=== PATIENT | male | born 1945 | race Caucasian/White ===

== ENCOUNTER → 2016-09-12 | Outpatient (CLI) | payer BC ==
[~2016-09-12] MED LIST: ASPI325T39 PO; ASPI81TA28 PO; ASPI81TA57 PO; ATOR80TA PO; DRON400T PO; FRRS300 PO; LISI10TA PO; METO1TAB31 PO; NAPR1TAB9 PO; NTRGSL/4 SL; TYLOTC500 PO
--- NOTE | 2016-09-12 08:52 | DIAGNOSTIC IMAGING REPORT ---
CT SCAN OF THE CHEST WITH IV CONTRAST CLINICAL HISTORY: Colonic polyps. COMPARISON STUDY: Chest radiograph dated 11/19/2015. TECHNIQUE: Following the IV administration of 93 cc of Optiray 320, CT scan of the thorax was performed from the thoracic inlet to the upper abdomen. Images are reviewed in the axial, sagittal, and coronal planes. IV contrast was administered without complication. CT DOSE: 402.69 mGy.cm FINDINGS: Thyroid: Imaged portions of the thyroid gland are normal in size and attenuation. Thoracic aorta: There is mild atherosclerotic calcification of the thoracic aorta, which is normal in caliber and demonstrates standard 3-vessel arch anatomy. No dissection is seen. Heart: The heart is normal in size and configuration, and without pericardial effusion. The coronary arteries are densely calcified. The pulmonary trunk is normal in caliber. Lungs and pleural spaces: There is no airspace consolidation or pleural effusion. Dependent atelectasis is noted. There is an 11 mm pulmonary nodule at the right lung base seen on image #293. There is a 9 mm right middle lobe nodule seen on image #230 and a 3 mm right lower lobe nodule seen on image #247. The trachea and central airways are clear. Mediastinum: There is no mediastinal lymphadenopathy. Ama: Clear. Axillae: There is no axillary lymphadenopathy. Upper abdomen: Scattered hepatic cysts measure up to 1.8 cm. Additional subcentimeter hepatic hypodensities also likely represent cysts but are too small for definitive characterization. There are numerous gallstones. Skeletal structures: The skeletal structures are osteopenic. Mild degenerative change is present in the shoulders and thoracic spine. No lytic or blastic bony lesions are seen. IMPRESSION: 1. There is no airspace consolidation or pleural effusion. 2. There are 9 mm and 11 mm pulmonary nodules at the right lung base. These are indeterminant but merit follow-up based on size criteria. See below. 3. There is no mediastinal or hilar lymphadenopathy. 4. Cholelithiasis. 5. Additional findings as above. Please refer to below summary of Fleischner criteria recommendations for follow-up of incidental CT nodules (Fely Wang, Guidelines for management of small pulmonary nodules detected on CT scans: A statement from the Fleischner Society, Radiology 237: [phone].) Low Risk Patient: Minimal or no smoking or other known risk factors for malignancy <=4 mm: No follow-up needed. >4-6 mm: Initial follow-up CT at 12 months; if unchanged, no further follow-up. >6-8 mm: Initial follow-up CT at 6-12 months then at 18-24 months if no change. >8 mm: Follow-up CT at \R\3, 9, 24 months, or PET and/or biopsy. High Risk Patient: History of smoking or other known risk factors <=4 mm: Follow-up at 12 months; if unchanged, no further follow-up. >4-6 mm: Initial follow-up CT at 6-12 months then at 18-24 months if no change. >6-8 mm: Initial follow-up CT at 3-6 months then at 9-12 and 24 months if no change. >8 mm: Same as low risk patient. Note: Nodule size measured as average of length and width. Ground glass or partly solid nodules may require longer follow-up to exclude indolent adenocarcinoma. Electronically signed by: Andreas Reeves M.D. 09/12/2016 8:51 AM Dictated Date/Time: 09/12/2016 8:43 AM
== END | disposition home or self-care (01) ==
LOC: C.CTS 08:20
PROVIDERS: ATTEND Colon & Rectal Surgery
DX: K63.5 Polyp of colon (principal); R91.1 Solitary pulmonary nodule; K80.20 Calculus of gallbladder without cholecystitis without obstruction

== ENCOUNTER 2016-10-03 02:17 | Inpatient (IN) | payer BC, OTHER ==
[~2016-10-03] VITALS: Ht 175.3 cm; Wt 76.8 kg
[~2016-10-03 02:17] MED LIST changes: -ASPI81TA28 PO; -DRON400T PO; -FRRS300 PO; -TYLOTC500 PO
--- NOTE | 2016-10-03 02:51 | EMERGENCY ROOM VISIT NOTE ---
History Report prepared by Danyell: Robert Thornton Under the Supervision of: Dr. Pham Carroll D.O. First contact with patient: 02:29 Chief Complaint: ABDOMINAL PAIN Stated Complaint: BLOATING - PAIN History of Present Illness The patient is a 71 year old male who presents to the Emergency Room with complaints of persistent abdominal pain for the past five days. The pain is sharp in nature. The patient also complains of abdominal bloating and diarrhea. He has been passing gas. His last bowel movement was at 1700 today, which was a small amount because he has not been eating much. The patient only had jell-o and pudding to eat today. The patient had laparoscopic removal of part of his cecum on September 14 that was cancerous. His colon was not resected but a mass was removed from the cecum as he describes it. The patient saw his surgeon six days and and his PCP five days ago (Nasima). He started a regular diet after following up with his surgeon, and switched to a liquid diet after his abdominal pain started. The patient denies any leg cramping or swelling. Source of History: patient Onset: five days ago Position: abdomen Quality: sharp Timing: other (persistent) Associated Symptoms: + diarrhea Review of Systems See HPI for pertinent positives & negatives. A total of 10 systems reviewed and were otherwise negative. Past Medical & Surgical Medical Problems: (1) Adenocarcinoma, colon (2) CAD (coronary artery disease) (3) Lung nodules (4) Paroxysmal a-fib Surgical Problems: (1) H/O prostatectomy (2) History of arthroscopy of right shoulder (3) History of cataract surgery (4) Hx of appendectomy (5) s/p cecectomy (6) s/p lysis of adhesions Family History Patient reports no known family medical history. Social History Smoking Status: Never Smoker Alcohol Use: occasionally Drug Use: none Marital Status: Housing Status: lives with significant other Occupation Status: retired Current/Historical Medications Scheduled Aspirin (Aspirin Ec), 162 MG PO DAILY Atorvastatin Calcium (Lipitor), 80 MG PO Q2D Dronedarone Hcl (Multaq), 1 TAB PO BID Ferrous Sulfate (Ferrous Sulfate), 325 MG PO DAILY Lisinopril (Prinivil), 10 MG PO QAM Scheduled PRN Acetaminophen (Tylenol), 1,000 MG PO Q8 PRN for Pain Nitroglycerin (Nitrostat), 0.4 MG SL UD PRN for Chest Pain Allergies Coded Allergies: No Known Allergies (Unverified , 10/03/16) Physical Exam Vital Signs Date Time Temp Pulse Resp B/P Pulse Ox O2 Delivery O2 Flow Rate FiO2 10/03/16 08:25 54 16 128/68 97 Room Air 10/03/16 07:10 53 20 129/78 96 Room Air 10/03/16 05:41 53 18 135/71 98 Room Air 10/03/16 04:13 65 18 127/64 97 Room Air 10/03/16 02:21 36.5 79 18 118/77 96 Room Air Physical Exam HEENT: Head - normocephalic and atraumatic Pupils are equal, round, and reactive to light. Extraocular eye muscles are intact, and sclera are anicteric. Nose - moist nasal mucosa without discharge. Mouth - moist buccal mucosa. Oropharynx is nonerythematous and there is no tonsillar exudate or edema noted. Neck: Supple; no JVD, nuchal rigidity, cervical lymphadenopathy, or auscultated bruits. Heart: Regular rate and rhythm. There is a normal S1 and S2 with no murmurs, clicks, or gallops appreciated. Lungs: Clear to auscultation bilaterally with no wheezes, rales, or rhonchi. Abdomen: Distended abdomen with tinkling bowel sounds. Tympanic to percussion. There are no palpable pulsatile masses or hepatosplenomegaly. There is no guarding, rigidity, or rebound noted. Extremities: No evidence of cyanosis, clubbing, or edema. There are easily palpable peripheral pulses. Skin: warm and dry with good turgor and no rashes. Medical Decision & Procedures ER Provider Diagnostic Interpretation: X-ray results as stated below per interpretation by me. CT results as stated below per my review and the radiologist's interpretation: Obstruction series: Moderately dilated loop of small bowel concerning for small bowel obstruction or ileus. CT A&P: Comparison Ct dated 09/12/2016. Dilated small bowel loops with air fluid levels. Air fluid levels are present in the proximal colon. Distal ileum is relatively decompressed compared to the remainder of small bowel. Findings may represent ileus although partial or early small bowel obstruction is not excluded. Follow up imaging may be obtained to assess for passage of oral contrast. Small free fluid in the pelvis. Bilateral fat containing inguinal hernias. Hepatic and renal cysts. Atherosclerotic vascular disease. No AAA. Radiologist Kasia Aviles MD. Laboratory Results 10/03/16 03:10 Red Blood Count 4.46, Mean Corpuscular Volume 87.4, Mean Corpuscular Hemoglobin 30.9, Mean Corpuscular Hemoglobin Concent 35.4, Mean Platelet Volume 8.6, Neutrophils (%) (Auto) 69.9, Lymphocytes (%) (Auto) 16.4, Monocytes (%) (Auto) 11.0, Eosinophils (%) (Auto) 2.2, Basophils (%) (Auto) 0.2, Neutrophils # (Auto ) 4.54, Lymphocytes # (Auto) 1.06, Monocytes # (Auto) 0.71, Eosinophils # (Auto ) 0.14, Basophils # (Auto) 0.01 10/03/16 03:10 Test 10/03/16 03:10 10/03/16 05:20 White Blood Count 6.48 K/uL (4.8-10.8) Red Blood Count 4.46 M/uL (4.7-6.1) Hemoglobin 13.8 g/dL (14.0-18.0) Hematocrit 39.0 % (42-52) Mean Corpuscular Volume 87.4 fL (80-100) Mean Corpuscular Hemoglobin 30.9 pg (25-34) Mean Corpuscular Hemoglobin Concent 35.4 g/dl (32-36) Platelet Count 237 K/uL (130-400) Mean Platelet Volume 8.6 fL (7.4-10.4) Neutrophils (%) (Auto) 69.9 % Lymphocytes (%) (Auto) 16.4 % Monocytes (%) (Auto) 11.0 % Eosinophils (%) (Auto) 2.2 % Basophils (%) (Auto) 0.2 % Neutrophils # (Auto) 4.54 K/uL (1.4-6.5) Lymphocytes # (Auto) 1.06 K/uL (1.2-3.4) Monocytes # (Auto) 0.71 K/uL (0.11-0.59) Eosinophils # (Auto) 0.14 K/uL (0-0.5) Basophils # (Auto) 0.01 K/uL (0-0.2) RDW Standard Deviation 43.0 fL (36.4-46.3) RDW Coefficient of Variation 13.8 % (11.5-14.5) Immature Granulocyte % (Auto) 0.3 % Immature Granulocyte # (Auto) 0.02 K/uL (0.00-0.02) Anion Gap 9.0 mmol/L (3-11) Est Creatinine Clear Calc Drug Dose 72.4 ml/min Estimated GFR () 93.6 Estimated GFR (Non- 80.8 BUN/Creatinine Ratio 16.8 (10-20) Calcium Level 8.3 mg/dl (8.5-10.1) Total Bilirubin 1.5 mg/dl (0.2-1) Direct Bilirubin 0.4 mg/dl (0-0.2) Aspartate Amino Transf (AST/SGOT) 16 U/L (15-37) Alanine Aminotransferase (ALT/SGPT) 48 U/L (12-78) Alkaline Phosphatase 55 U/L (45-117) Total Protein 6.6 gm/dl (6.4-8.2) Albumin 3.5 gm/dl (3.4-5.0) Lipase 133 U/L (73-393) Hepatitis C Antibody Screen NEG (NEG) Urine Color DK YELLOW Urine Appearance CLOUDY (CLEAR) Urine pH 5.0 (4.5-7.5) Urine Specific [place] 1.022 (1.000-1.030) Urine Protein NEG (NEG) Urine Glucose (UA) NEG (NEG) Urine Ketones 1+ (NEG) Urine Occult Blood NEG (NEG) Urine Nitrite NEG (NEG) Urine Bilirubin NEG (NEG) Urine Urobilinogen POS (NEG) Urine Leukocyte Esterase NEG (NEG) Urine WBC (Auto) 1-5 /hpf (0-5) Urine RBC (Auto) 10-30 /hpf (0-4) Urine Hyaline Casts (Auto) 10-30 /lpf (0-5) Urine Epithelial Cells (Auto) 20-30 /lpf (0-5) Urine Bacteria (Auto) NEG (NEG) Laboratory results per my review. Medications Administered Medications (Trade) Dose Ordered Sig/Deann Route Start Time Stop Time Status Last Admin Dose Admin Hydromorphone HCl 1 mg 1 mg NOW STAT IV 10/03/16 07:03 10/03/16 07:05 DC 10/03/16 07:10 1 MG Sodium Chloride (Nss 1000ml) 1,000 ml @ 250 mls/hr Q4H STAT IV 10/03/16 07:04 10/03/16 11:01 DC 10/03/16 07:09 250 MLS/HR Procedure Medications administered include Colchicine PO, Dilaudid IV, NSS IV. ED Course 0245: Past medical records reviewed. The patient was evaluated in room A10. A complete history and physical exam was performed. An IV lock was initiated and labs were drawn as above. The patient will go for an obstruction series. 0350: Updated the patient. 0455: The patient is drinking his CT contrast. He appears to be doing okay at this time. 0653: The patient is still comfortable and has not had any new vomiting. I informed him that he will be rescanned in a few hours and will receive IV fluids. 0655: Nurse informed me that the patient would now like something for pain. 0700: The patient was signed out to Dr. Claire at shift change. 0703: Dilaudid 1 mg IV. 0704: NSS 1000 ml @ 250 mls/hr. Medical Decision The patient is a 71 year old male who presents to the ED with abdominal pain. Differential diagnosis includes small bowel obstruction, constipation, ileus, gastroenteritis. Laboratory interpretation: No leukocytosis, hemoglobin 13.8, total bilirubin 1.5 , direct bilirubin 0.4, lipase 133, normal glucose, normal renal function. This is a 71-year-old male patient presents emergency Department with abdominal pain and distention. The patient underwent a partial resection of his colon 3 weeks ago. He has been doing fine postoperatively until tonight when he began to develop some pain and distention. Initial obstruction series was somewhat concerning for a partial small bowel obstruction versus ileus. The patient went on to have a CT scan which was interpreted by stat rad stating that he had a partial small bowel obstruction or an ileus and they recommended additional imaging. At that point, the case was signed out to Dr. Claire change of shift awaiting the additional imaging once the contrast had time to pass. Impression Primary Impression: Abdominal distension Scribe Attestation The scribe's documentation has been prepared under my direction and personally reviewed by me in its entirety. I confirm that the note above accurately reflects all work, treatment, procedures, and medical decision making performed by me. Departure Information Dispostion Still a Patient Referrals Sharad Yeager M.D. (PCP) Patient Instructions My [facility]
[2016-10-03 03:21] LABS: BASO % 0.2 %; BASO ABS # 0.01 K/uL (0-0.2); COMPLETE YES; EOS % 2.2 %; IG% 0.3 %; LYMPH % 16.4 %; LYMPH ABS # 1.06 K/uL (1.2-3.4); MEAN CELL VOLUME 87.4 fL (80-100); MEAN CORPUSCULAR HEMOGLOBIN 30.9 pg (25-34); MEAN CORPUSCULAR HGB CONC 35.4 g/dl (32-36); MEAN PLATELET VOLUME 8.6 fL (7.4-10.4); NEUT % 69.9 %; PLATELET COUNT 237 K/uL (130-400); RED BLOOD COUNT 4.46 M/uL (4.7-6.1); WHITE BLOOD COUNT 6.48 K/uL (4.8-10.8)
[2016-10-03 03:39] LABS: BUN/CREATININE RATIO 16.8 (10-20); CALCIUM 8.3 mg/dl (8.5-10.1); CREATININE 0.95 mg/dl (0.60-1.40); POTASSIUM 3.7 mmol/L (3.5-5.1)
[2016-10-03] MEDS ORDERED: COLCHICINE 0.6 MG TAB PO ONE (03:45)
[2016-10-03] MEDS ORDERED: OPTIRAY 320 IV PRN (04:30)
[2016-10-03] MEDS ORDERED: ASPI81TA28 PO (05:09)
[2016-10-03] MEDS ORDERED: FRRS300 PO (05:09)
[2016-10-03] MEDS ORDERED: DRON400T PO (05:10)
[2016-10-03] MEDS ORDERED: TYLOTC500 PO (05:10)
[2016-10-03 05:36] LABS: URINE APPEARANCE CLOUDY (CLEAR); URINE BILIRUBIN NEG (NEG); URINE COLOR DK YELLOW; URINE EPITHELIAL CELL AUTO 20-30 /lpf (0-5); URINE NITRITE NEG (NEG); URINE SPECIFIC GRAVITY 1.022 (1.000-1.030); UROBILINOGEN POS (NEG)
[2016-10-03 05:41] LABS: MANUAL MICROSCOPIC REQUIRED? NO; REVIEW REQ? NO
[2016-10-03] MEDS ORDERED: HYDROmorphone INJ 1 MG/ML SYR IV STA (07:03)
[2016-10-03] MEDS ORDERED: SODIUM CHLORIDE 0.9% 1000ML 1,000 ML IV STA (07:04)
--- NOTE | 2016-10-03 07:53 | DIAGNOSTIC IMAGING REPORT ---
PA CHEST WITH ABDOMINAL SERIES CLINICAL HISTORY: Generalized abdominal pain. FINDINGS: A PA chest radiograph is compared to study dated 11/19/2015 and correlated with chest CT dated 09/12/2016. The cardiomediastinal silhouette is unremarkable. There is bibasilar atelectasis. Chronic interstitial thickening is noted. The lungs and pleural spaces are otherwise clear. No pneumothorax is seen. The skeletal structures are osteopenic. The bony thorax is grossly intact. Chronic right shoulder separation is suspected. Supine and erect abdominal radiographs are correlated with abdominal CT performed the same day 10/03/2016. There are distended loops of small bowel and colon. No evidence of intraperitoneal free air is seen. Scattered air-fluid levels are identified on the upright view. There are no abnormal abdominal calcifications. There is mild lumbosacral spondylosis. The bony pelvis appears intact. Surgical clips and phleboliths are present in the pelvis. IMPRESSION: 1. No active disease in the chest. 2. There is gaseous distention of the small bowel and colon. Differential considerations include partial small bowel obstruction versus ileus. Clinical correlation will be required. 3. No intraperitoneal free air is seen. Electronically signed by: Andreas Reeves M.D. 10/03/2016 7:52 AM Dictated Date/Time: 10/03/2016 7:48 AM
--- NOTE | 2016-10-03 08:25 | DIAGNOSTIC IMAGING REPORT ---
CT SCAN OF THE ABDOMEN AND PELVIS WITH IV CONTRAST CLINICAL HISTORY: Generalized abdominal pain. History of colon cancer. COMPARISON STUDY: Abdominal radiographs performed the same day 10/03/2016. Chest CT dated 09/12/2016. TECHNIQUE: Following the IV administration of 91 cc of Optiray 320, CT scan of the abdomen and pelvis is performed from the lung bases to the proximal femora. Images are reviewed in the axial, sagittal, and coronal planes. IV contrast was administered without complication. Automated dose control exposure was utilized. CT DOSE: 402.05 mGy.cm FINDINGS: Lung bases: The heart is normal in size and there is trace pericardial fluid. There are coronary artery calcifications. There is dependent atelectasis. No airspace consolidation is seen typical for pneumonia and there is no pleural effusion. There is a 11 mm nodule at the right lung base seen on image #92. An 8 mm right middle lobe nodule is seen on image #47. A small hiatal hernia is identified. Liver: The contrast-enhanced liver is normal in size, contour, and attenuation. There is no intrahepatic biliary ductal dilatation. The hepatic veins and portal veins are patent. Scattered hepatic cysts measure up to 2.0 cm. Additional hepatic hypodensities also likely represent cysts but are too small for definitive characterization. Gallbladder: Unremarkable. Spleen: Normal in size and attenuation. Pancreas: Moderately atrophic. Adrenal glands: Unremarkable. Kidneys: The contrast enhanced kidneys demonstrate mild cortical atrophy and are without hydronephrosis. The kidneys enhance symmetrically. Scattered renal cysts measure up to 3 cm. Additional subcentimeter cortical hypodensities also likely represent cysts but are too small for definitive characterization. Abdominal vasculature: The abdominal aorta is normal in course and caliber noting moderate atherosclerotic calcification. Bowel: There are postoperative changes from partial cecectomy with ileocolic anastomosis. The small bowel loops are distended and fluid-filled, measuring up to 4.1 cm in transverse diameter. The cecum is also mildly distended and fluid-filled. The distal colon is decompressed. A transition point is suggested in the right lower quadrant on image #376 and the distal/terminal ileum is decompressed. The appearance is typical for a bowel obstruction. No focally thick walled bowel loops are identified. There is no pneumatosis intestinalis or portal venous gas. The appendix is surgically absent. Peritoneum: There is a small volume of abdominopelvic ascites. No intraperitoneal free air is seen. There is a small fat-containing umbilical hernia. Lymphadenopathy: None. Pelvic viscera: The prostate gland is not identified and presumed surgically absent. The bladder is normal as imaged. There are bilateral fat-containing inguinal hernias, left larger than right. Skeletal structures: The skeletal structures are heterogeneously osteopenic. There is moderate lumbosacral spondylosis. No lytic or blastic lesions are seen. IMPRESSION: 1. There are postoperative changes from cecectomy with ileocolic anastomosis. 2. Findings are consistent with a small bowel obstruction, with a transition point identified in the right lower quadrant. This may be partial as there is gas and fluid seen within the cecum. 3. No intraperitoneal free air is seen. No focally thick walled bowel loops are identified. There is no pneumatosis intestinalis or portal venous gas. 4. There is a small volume of abdominopelvic ascites. 5. Pulmonary nodules at the right lung base measuring up to 11 mm are again noted. These were better characterized on the 09/12/[address] 6. Additional findings as above. Electronically signed by: Andreas Reeves M.D. 10/03/2016 8:24 AM Dictated Date/Time: 10/03/2016 8:12 AM
[2016-10-03] MEDS ORDERED: ACETAMINOPHEN 325 MG TAB PO PRN (09:45)
[2016-10-03] MEDS ORDERED: ONDANSETRON INJ 2 MG/ML 2 ML VIAL IV PRN (09:45)
[2016-10-03] MEDS ORDERED: DRONEDARONE 400 MG TAB PO ONE (09:59)
[2016-10-03] MEDS ORDERED: MoRPHine SULFATE 4 MG/ML 1 ML CARP\\VIAL IV PRN (10:00)
--- NOTE | 2016-10-03 10:35 | History and Physical ---
History & Physical Date & Time of Service: Oct 03, 2016 at 10:14 Chief Complaint: Abdominal Bloating, Pain Primary Care Physician: Sharad Yeager M.D. History of Present Illness 71 year old male who presents to the ER with abdominal bloating and pain. On 09/14 patient underwent cecectomy and lysis of adhesions for adenocarcinoma. Patient reports he saw his surgeon last week for follow up and was told he could advance his diet. Patient reports he then ate a very large meal. He started to develop abdominal bloating. He pain in his lower abdomen that he describes as a pressure from the bloating. He initially had 5 episodes of diarrhea however has been having regular bowel movements, most recently this morning. Patient called his surgeon about his symptoms and he was told to go on a liquid diet however the bloating continued. He denies nausea and vomiting. No chest pain, palpitations, or shortness of breath. He denies lightheadedness, dizziness, diaphoresis, or syncope. No fever or chills. In the ER, patient had a CT that is showing SBO, possibly partial. Patient was given IVF and IV Dilaudid. He reports he has been passing flatus, belching, and even had a small bowel movement since being here. He reports the abdominal distention has significantly improved and he is pain free. Past Medical/Surgical History Medical Problems: (1) Adenocarcinoma, colon Status: Chronic (2) CAD (coronary artery disease) Permanent Comment: 2012 - RCA STEMI, s/p BMS x 3 and aspiration thrombectomy to RCA Status: Chronic (3) Lung nodules Status: Chronic (4) Paroxysmal a-fib Status: Chronic Surgical Problems: (1) H/O prostatectomy Status: Chronic (2) History of arthroscopy of right shoulder Status: Chronic (3) History of cataract surgery Status: Chronic (4) Hx of appendectomy Status: Chronic (5) s/p cecectomy Status: Chronic (6) s/p lysis of adhesions Status: Chronic Social History Smoking Status: Former Smoker Alcohol Use: none Marital Status: Immunizations History of Influenza Vaccine: Yes Influenza Vaccine Date: Aug 04, 2016 History of Tetanus Vaccine?: Yes Tetanus Immunization Date: December 15, 2009 History of Pneumococcal: Yes Pneumococcal Date: Aug 20, 2015 Multi-Drug Resistant Organisms History of MDRO: No Allergies Coded Allergies: No Known Allergies (Unverified , 10/03/16) Home Medications Scheduled Aspirin (Aspirin Ec), 162 MG PO DAILY Atorvastatin Calcium (Lipitor), 80 MG PO Q2D Dronedarone Hcl (Multaq), 1 TAB PO BID Ferrous Sulfate (Ferrous Sulfate), 325 MG PO DAILY Lisinopril (Prinivil), 10 MG PO QAM Scheduled PRN Acetaminophen (Tylenol), 1,000 MG PO Q8 PRN for Pain Nitroglycerin (Nitrostat), 0.4 MG SL UD PRN for Chest Pain Review of Systems 10 point review of systems was completed with the pertinent positives and negatives noted per the HPI Physical Exam Vital Signs Date Time Temp Pulse Resp B/P Pulse Ox O2 Delivery O2 Flow Rate FiO2 10/03/16 08:25 54 16 128/68 97 Room Air 10/03/16 07:10 53 20 129/78 96 Room Air 10/03/16 05:41 53 18 135/71 98 Room Air 10/03/16 04:13 65 18 127/64 97 Room Air 10/03/16 02:21 36.5 79 18 118/77 96 Room Air General Appearance: no apparent distress Head: normocephalic Eyes: normal inspection ENT: hearing grossly normal Neck: supple, no JVD Respiratory/Chest: lungs clear, normal breath sounds, no respiratory distress Cardiovascular: no edema, normal peripheral pulses, + bradycardia (regular rhythm ) Abdomen/GI: soft, + tenderness (mild with deep palpation, lower abdomen ), + abnormal bowel sounds (hypoactive) Extremities/Musculoskelatal: normal inspection, no calf tenderness Neurologic/Psych: no motor/sensory deficits, alert, normal mood/affect, oriented x 3 Skin: normal color, warm/dry Diagnostics Laboratory Results Results Past 24 Hours Test 10/03/16 03:10 10/03/16 05:20 10/03/16 09:47 Range/Units White Blood Count 6.48 4.8-10.8 K/uL Red Blood Count 4.46 4.7-6.1 M/uL Hemoglobin 13.8 14.0-18.0 g/dL Hematocrit 39.0 42-52 % Mean Corpuscular Volume 87.4 80-100 fL Mean Corpuscular Hemoglobin 30.9 25-34 pg Mean Corpuscular Hemoglobin Concent 35.4 32-36 g/dl Platelet Count 237 130-400 K/uL Mean Platelet Volume 8.6 7.4-10.4 fL Neutrophils (%) (Auto) 69.9 % Lymphocytes (%) (Auto) 16.4 % Monocytes (%) (Auto) 11.0 % Eosinophils (%) (Auto) 2.2 % Basophils (%) (Auto) 0.2 % Neutrophils # (Auto) 4.54 1.4-6.5 K/uL Lymphocytes # (Auto) 1.06 1.2-3.4 K/uL Monocytes # (Auto) 0.71 0.11-0.59 K/uL Eosinophils # (Auto) 0.14 0-0.5 K/uL Basophils # (Auto) 0.01 0-0.2 K/uL RDW Standard Deviation 43.0 36.4-46.3 fL RDW Coefficient of Variation 13.8 11.5-14.5 % Immature Granulocyte % (Auto) 0.3 % Immature Granulocyte # (Auto) 0.02 0.00-0.02 K/uL Sodium Level 136 136-145 mmol/L Potassium Level 3.7 3.5-5.1 mmol/L Chloride Level 101 98-107 mmol/L Carbon Dioxide Level 26 21-32 mmol/L Anion Gap 9.0 3-11 mmol/L Blood Urea Nitrogen 16 7-18 mg/dl Creatinine 0.95 0.60-1.40 mg/dl Est Creatinine Clear Calc Drug Dose 72.4 ml/min Estimated GFR () 93.6 Estimated GFR (Non- 80.8 BUN/Creatinine Ratio 16.8 10-20 Random Glucose 81 70-99 mg/dl Calcium Level 8.3 8.5-10.1 mg/dl Total Bilirubin 1.5 0.2-1 mg/dl Direct Bilirubin 0.4 0-0.2 mg/dl Aspartate Amino Transf (AST/SGOT) 16 15-37 U/L Alanine Aminotransferase (ALT/SGPT) 48 12-78 U/L Alkaline Phosphatase 55 45-117 U/L Total Protein 6.6 6.4-8.2 gm/dl Albumin 3.5 3.4-5.0 gm/dl Lipase 133 73-393 U/L Urine Color DK YELLOW Urine Appearance CLOUDY CLEAR Urine pH 5.0 4.5-7.5 Urine Specific [place] 1.022 1.000-1.030 Urine Protein NEG NEG Urine Glucose (UA) NEG NEG Urine Ketones 1+ NEG Urine Occult Blood NEG NEG Urine Nitrite NEG NEG Urine Bilirubin NEG NEG Urine Urobilinogen POS NEG Urine Leukocyte Esterase NEG NEG Urine WBC (Auto) 1-5 0-5 /hpf Urine RBC (Auto) 10-30 0-4 /hpf Urine Hyaline Casts (Auto) 10-30 0-5 /lpf Urine Epithelial Cells (Auto) 20-30 0-5 /lpf Urine Bacteria (Auto) NEG NEG Diagnostic Radiology CHEST/ABD XR IMPRESSION: 1. No active disease in the chest. 2. There is gaseous distention of the small bowel and colon. Differential considerations include partial small bowel obstruction versus ileus. Clinical correlation will be required. 3. No intraperitoneal free air is seen. CT ABD/PELVIS IMPRESSION: 1. There are postoperative changes from cecectomy with ileocolic anastomosis. 2. Findings are consistent with a small bowel obstruction, with a transition point identified in the right lower quadrant. This may be partial as there is gas and fluid seen within the cecum. 3. No intraperitoneal free air is seen. No focally thick walled bowel loops are identified. There is no pneumatosis intestinalis or portal venous gas. 4. There is a small volume of abdominopelvic ascites. 5. Pulmonary nodules at the right lung base measuring up to 11 mm are again noted. These were better characterized on the 09/12/[address] 6. Additional findings as above. Impression Assessment and Plan SBO - admit to med/surg - patient s/p cecectomy and lysis of adhesions on 09/14/[address] Welch [place] [facility] - presenting with increasing abdominal distention and lower abdominal pain after advancing diet per surgeon's advice - patient currently feeling much improved and has been passing flatus and had a small formed bowel movement - no role of NG at this time, however low threshold for placement if symptoms worsen - general surgery consult - NPO until seen by surgery - IVF, pain and nausea control - f/u abd XR in AM - patient reports his surgeon from [facility] has office hours in [place] tomorrow - potential d/c tomorrow if cleared by general surgery here for follow up with Dr. Yuri Root. FIB - HR auscultates regular on exam, check EKG - rhythm controlled on Multaq, will continue - patient declines anticoagulation CAD - appears stable, no reports of chest pain - continue ASA and statin; not on beta dina due to bradycardia and Multaq therapy HTN - BP controlled, continue Lisinopril DVT PROPHYLAXIS - SCDs CODE STATUS - Patient is a full code as per my discussion with him. DISPO - In my clinical judgment this beneficiary meets acute admission criteria, established by [facility], that includes being hospitalized through two midnights. - Except d/c home once medically stable. I have seen, examined and discussed this patient with Jennifer Soria and I agree with the above note. Patient presented with abdominal pain, bloating. CT a/p with partial SBO. Patient had a small BM, has had belching and flatus and feels significantly improved. Vitals stable. PE: General- awake; alert; NAD Eyes- EOMI; no scleral icterus Neck- no stridor; trachea midline Lungs- CTA bilaterally; no wheezes/crackles Heart- RRR; no m/r/g Abdomen- soft; NTND; nBS Back- no gross abnormalities Extremities- no c/c/e; no deformity Neuro- no gross focal deficits Skin- no appreciable rash or bruise Labs, imaging and EKG reviewed. Patient presented with partial SBO. General surgery consulted. Case reviewed with patient's colorectal surgeon from [place]. Patient is pain free, passing gas. Tolerating full liquid diet. Anticipate discharge home in am with same day follow up with [place] colorectal surgeon (who will be in [facility]). Continue home medications as outlined above. VTE Prophylaxis VTE Risk Assessment Done? Y/N: Yes Risk Level: Moderate
--- NOTE | 2016-10-03 11:05 | Surgery Consultation ---
Consultation Date of Consultation: Oct 03, 2016. Attending Physician: Reason for Consultation: Partial Small Bowel Obstruction History of Present Illness Jayce is a 71 year-old male who presented to [facility] emergency department with complaint of abdominal pain and bloating for 5 days. Jayce had cecectomy on September [address] [place] [address] Maravilla for colon cancer. States he was doing well up until 5 days ago started getting abdominal pain and bloating. Has passed gas and a small bowel movement this morning and is feeling a lot better. Currently denies of any nausea or vomiting. Has appointment with Dr. Maravilla Monday. CT scan of abdomen and pelvis showing partial small bowel obstruction , does not show complete obstruction given air in the colon. Past Medical/Surgical History Medical Problems: (1) Atrial fibrillation with rapid ventricular response Status: Acute (2) Influenza A Status: Acute (3) Paroxysmal a-fib Status: Acute Family History Diabetes mellitus MOTHER Social History Smoking Status: Former Smoker Alcohol Use: none Marital Status: Housing Status: lives with significant other Allergies Coded Allergies: No Known Allergies (Unverified , 10/03/16) Home Medications Scheduled Aspirin (Aspirin Ec), 162 MG PO DAILY Atorvastatin Calcium (Lipitor), 80 MG PO Q2D Dronedarone Hcl (Multaq), 1 TAB PO BID Ferrous Sulfate (Ferrous Sulfate), 325 MG PO DAILY Lisinopril (Prinivil), 10 MG PO QAM Scheduled PRN Acetaminophen (Tylenol), 1,000 MG PO Q8 PRN for Pain Nitroglycerin (Nitrostat), 0.4 MG SL UD PRN for Chest Pain Current Inpatient Medications Current Inpatient Medications Medications (Trade) Dose Ordered Sig/Deann Route Start Time Stop Time Status Last Admin Dose Admin Ioversol 100 ml 100 ml UD PRN IV 10/03/16 04:30 10/07/16 04:29 Sodium Chloride (Nss 1000ml) 1,000 ml @ 250 mls/hr Q4H STAT IV 10/03/16 07:04 10/03/16 11:03 10/03/16 07:09 250 MLS/HR Acetaminophen (Tylenol Tab) 650 mg Q4H PRN PO 10/03/16 09:45 11/02/16 09:44 Ondansetron HCl 4 mg 4 mg Q6H PRN IV 10/03/16 09:45 11/02/16 09:44 Sodium Chloride (Nss 1000ml) 1,000 ml @ 150 mls/hr Q6H40M IV 10/03/16 10:00 11/02/16 09:59 UNV Morphine Sulfate (MoRPHine SULFATE INJ) 3 mg Q3H PRN IV 10/03/16 10:00 10/17/16 09:59 Aspirin (Ecotrin Tab) 162 mg DAILY PO 10/04/16 09:00 11/03/16 08:59 UNV Atorvastatin Calcium (Lipitor Tab) 80 mg Q2D PO 10/03/16 10:00 11/02/16 09:59 UNV Dronedarone (Multaq Tab) 400 mg BID PO 10/03/16 21:00 11/02/16 20:59 UNV Ferrous Sulfate (Feosol Tab) 325 mg DAILY PO 10/04/16 09:00 11/03/16 08:59 UNV Lisinopril (Zestril Tab) 10 mg QAM PO 10/04/16 09:00 11/03/16 08:59 UNV Dronedarone (Multaq Tab) 400 mg 0959 ONCE PO 10/03/16 09:59 10/03/16 10:00 UNV Review of Systems Constitutional: No chills, No fever, No weight loss Respiratory: No cough Cardiovascular: No chest pain Abdomen: + pain, No nausea, No vomiting Physical Exam Date Time Temp Pulse Resp B/P Pulse Ox O2 Delivery O2 Flow Rate FiO2 10/03/16 08:25 54 16 128/68 97 Room Air 10/03/16 07:10 53 20 129/78 96 Room Air 10/03/16 05:41 53 18 135/71 98 Room Air 10/03/16 04:13 65 18 127/64 97 Room Air 10/03/16 02:21 36.5 79 18 118/77 96 Room Air General Appearance: WD/WN, no apparent distress Head: normocephalic, atraumatic Respiratory/Chest: lungs clear, normal breath sounds, no respiratory distress, no accessory muscle use Cardiovascular: regular rate, rhythm, no murmur, normal peripheral pulses Abdomen/GI: non tender, soft, + distended Extremities/Musculoskelatal: normal inspection Neurologic/Psych: normal mood/affect Skin: normal color, warm/dry, no rash Laboratory Results Last 24 Hours Test 10/03/16 03:10 10/03/16 05:20 10/03/16 10:26 White Blood Count 6.48 K/uL Red Blood Count 4.46 M/uL Hemoglobin 13.8 g/dL Hematocrit 39.0 % Mean Corpuscular Volume 87.4 fL Mean Corpuscular Hemoglobin 30.9 pg Mean Corpuscular Hemoglobin Concent 35.4 g/dl Platelet Count 237 K/uL Mean Platelet Volume 8.6 fL Neutrophils (%) (Auto) 69.9 % Lymphocytes (%) (Auto) 16.4 % Monocytes (%) (Auto) 11.0 % Eosinophils (%) (Auto) 2.2 % Basophils (%) (Auto) 0.2 % Neutrophils # (Auto) 4.54 K/uL Lymphocytes # (Auto) 1.06 K/uL Monocytes # (Auto) 0.71 K/uL Eosinophils # (Auto) 0.14 K/uL Basophils # (Auto) 0.01 K/uL RDW Standard Deviation 43.0 fL RDW Coefficient of Variation 13.8 % Immature Granulocyte % (Auto) 0.3 % Immature Granulocyte # (Auto) 0.02 K/uL Sodium Level 136 mmol/L Potassium Level 3.7 mmol/L Chloride Level 101 mmol/L Carbon Dioxide Level 26 mmol/L Anion Gap 9.0 mmol/L Blood Urea Nitrogen 16 mg/dl Creatinine 0.95 mg/dl Est Creatinine Clear Calc Drug Dose 72.4 ml/min Estimated GFR () 93.6 Estimated GFR (Non- 80.8 BUN/Creatinine Ratio 16.8 Random Glucose 81 mg/dl Calcium Level 8.3 mg/dl Total Bilirubin 1.5 mg/dl Direct Bilirubin 0.4 mg/dl Aspartate Amino Transf (AST/SGOT) 16 U/L Alanine Aminotransferase (ALT/SGPT) 48 U/L Alkaline Phosphatase 55 U/L Total Protein 6.6 gm/dl Albumin 3.5 gm/dl Lipase 133 U/L Urine Color DK YELLOW Urine Appearance CLOUDY Urine pH 5.0 Urine Specific [place] 1.022 Urine Protein NEG Urine Glucose (UA) NEG Urine Ketones 1+ Urine Occult Blood NEG Urine Nitrite NEG Urine Bilirubin NEG Urine Urobilinogen POS Urine Leukocyte Esterase NEG Urine WBC (Auto) 1-5 /hpf Urine RBC (Auto) 10-30 /hpf Urine Hyaline Casts (Auto) 10-30 /lpf Urine Epithelial Cells (Auto) 20-30 /lpf Urine Bacteria (Auto) NEG CT SCAN ABDOMEN AND PELVIS IMPRESSION: 1. There are postoperative changes from cecectomy with ileocolic anastomosis. 2. Findings are consistent with a small bowel obstruction, with a transition point identified in the right lower quadrant. This may be partial as there is gas and fluid seen within the cecum. 3. No intraperitoneal free air is seen. No focally thick walled bowel loops are identified. There is no pneumatosis intestinalis or portal venous gas. 4. There is a small volume of abdominopelvic ascites. 5. Pulmonary nodules at the right lung base measuring up to 11 mm are again noted. These were better characterized on the 09/12/[address] 6. Additional findings as above. Assessment & Plan Partial Small Bowel Obstruction - vital signs stable - CT scan showing partial obstruction not complete - patient passed flatus this morning and in ER - Concern for possible internal hernia given recent surgery ER physician to talk with Surgeon from [place], if surgeon agrees for transfer then patient will be transferred for further management. If surgeon does not feel patient needs transferred patient will be admitted here and our service will continue to follow patient. Dr. Adame has seen and examined patient agrees with above stated findings and treatment plan.
[2016-10-03] MEDS: SODIUM CHLORIDE 0.9% 1000ML 1,000 ML IV SCH ×2 (12:22→18:06)
[2016-10-03 12:33] VITALS: BP 132/76; PULSE 52; TEMP 36.3; O2SAT 97
[2016-10-03 12:50] VITALS: BP 132/76; PULSE 52; TEMP 36.3; O2SAT 97; Ht 175.3 cm; Wt 76.8 kg
[2016-10-03] MEDS: ATORVASTATIN 40 MG TAB PO SCH ×2 (13:25→13:30)
[2016-10-03] MEDS ORDERED: NURSING VERBAL MED ORDER ONE (13:30)
--- NOTE | 2016-10-03 15:07 | Progress Note ---
Progress Note Date of Service Oct 03, 2016. Progress Note Spoke with Dr. Welch (surgeon at [facility] who preferred patient's cecectomy). He was able to review his CT abd/pelvis done in the ER earlier. He recommends we give the patient a full liquid diet. If patient tolerates, he can be discharged tomorrow will follow up in the [place] office tomorrow. If patient does not tolerate the diet, NG tube will be placed and patient will be transferred to [facility]. Patient updated who agrees with the plan. Dr. Adame also updated.
[2016-10-03 15:15] VITALS: BP 130/71; PULSE 58; TEMP 36.4; O2SAT 96
--- NOTE | 2016-10-03 15:33 | EMERGENCY ROOM VISIT NOTE ---
ED Visit Note First contact with patient: 06:57 I received this patient in signout at the change of shift from Dr. Carroll by pending repeat CT scan as recommended by stat read radiology. The original CT scan was over read by Dr. Reeves are [facility] radiologist. It is read as below. IMPRESSION: 1. There are postoperative changes from cecectomy with ileocolic anastomosis. 2. Findings are consistent with a small bowel obstruction, with a transition point identified in the right lower quadrant. This may be partial as there is gas and fluid seen within the cecum. 3. No intraperitoneal free air is seen. No focally thick walled bowel loops are identified. There is no pneumatosis intestinalis or portal venous gas. 4. There is a small volume of abdominopelvic ascites. 5. Pulmonary nodules at the right lung base measuring up to 11 mm are again noted. These were better characterized on the 09/12/[address] 6. Additional findings as above. Electronically signed by: Andreas Reeves M.D. 10/03/2016 8:24 AM I discussed the findings with Dr. Reeves who stated he did not feel that repeat imaging was necessary. The patient was discussed with the hospitalist service, Jennifer Soria PA-C. Dr. Adame of general surgery was consulted. He was concerned about a possible internal hernia however I did speak with Dr. Reeves again who stated there is no evidence of this on CT scan and his opinion. Dr. Adame has requested that I speak with Dr. Cruz, the colorectal surgeon at [facility]. He stated is highly unlikely that there is an internal hernia given the surgery that he performed. He will evaluate the CAT scan images when available on the PACS system at [facility]. The patient will be evaluated and admitted by the hospitalist service with general surgery consultation. The patient will likely follow-up with Dr. Quigley tomorrow in the outpatient clinic in [place]. At this time the patient has no interest in being transferred to [facility], he prefers to stay local. He is passing gas and his abdominal pain has improved significantly. I suspect he is suffering from a partial small bowel obstruction. He has tolerated oral contrast for CT well and has had no vomiting. Pt is aware of the plan and agrees. Diagnosis: Partial SBO
[2016-10-03] MEDS: DRONEDARONE 400 MG TAB PO SCH (21:28)
[2016-10-03 23:32] VITALS: BP 137/74; PULSE 57; TEMP 36.7; O2SAT 94
[2016-10-04] MEDS: SODIUM CHLORIDE 0.9% 1000ML 1,000 ML IV SCH (01:58)
[2016-10-04 07:14] LABS: HEMATOCRIT 35.2 % (42-52); MEAN CELL VOLUME 88.7 fL (80-100); MEAN CORPUSCULAR HGB CONC 34.9 g/dl (32-36); MEAN PLATELET VOLUME 8.4 fL (7.4-10.4); PLATELET COUNT 194 K/uL (130-400); RED BLOOD COUNT 3.97 M/uL (4.7-6.1); WHITE BLOOD COUNT 4.86 K/uL (4.8-10.8)
[2016-10-04 07:40] LABS: BUN/CREATININE RATIO 12.3 (10-20); CALCIUM 7.9 mg/dl (8.5-10.1); CREATININE 0.93 mg/dl (0.60-1.40); POTASSIUM 3.7 mmol/L (3.5-5.1)
--- NOTE | 2016-10-04 08:04 | Discharge Instructions ---
Discharge Instructions Admission Reason for Admission: SBO Discharge Discharge Diagnosis / Problem: Partial small bowel obstruction Discharge Goals Goal(s): Decrease discomfort Activity Recommendations Activity Limitations: resume your previous activity . Instructions / Follow-Up Instructions / Follow-Up Please keep your scheduled appointment with Colorectal surgery Dr. Welch today at 1:30pm. Please discuss with Dr. Welch any dietary restrictions and when to advance your diet. Please follow up with Family Medicine Dr. Mcfarlane October 07 at 1:20pm. (Dr. Yeager is out of the office) Current Hospital Diet Patient's current hospital diet: Full Liquid Diet Discharge Diet Recommended Diet: Full Liquid Diet Pending Studies Studies pending at discharge: no Medical Emergencies . Who to Call and When: Medical Emergencies: If at any time you feel your situation is an emergency, please call 911 immediately. . Non-Emergent Contact Non-Emergency issues call your: Primary Care Provider . . "Provider Documentation" section prepared by Carin Lyles. VTE Core Measure Inpt VTE Proph given/why not?: SCD's
--- NOTE | 2016-10-04 08:11 | Discharge Summary ---
Discharge Summary Date of Service Oct 04, 2016. Discharge Summary Admission Date: Oct 03, 2016 at 09:47 Discharge Date: Oct 04, 2016 Discharge Disposition: Home Principal Diagnosis: Partial SBO Procedures: CT a/p 1. There are postoperative changes from cecectomy with ileocolic anastomosis. 2. Findings are consistent with a small bowel obstruction, with a transition point identified in the right lower quadrant. This may be partial as there is gas and fluid seen within the cecum. 3. No intraperitoneal free air is seen. No focally thick walled bowel loops are identified. There is no pneumatosis intestinalis or portal venous gas. 4. There is a small volume of abdominopelvic ascites. 5. Pulmonary nodules at the right lung base measuring up to 11 mm are again noted. These were better characterized on the 09/12/[address] Consultations: General surgery Medication Reconciliation Continued Medications: Acetaminophen (Tylenol) 500 Mg Tab 1000 MG PO Q8 PRN for Pain, TAB Aspirin (Aspirin Ec) 81 Mg Tab 162 MG PO DAILY Atorvastatin Calcium (Lipitor) 80 Mg Tab 80 MG PO Q2D, TAB Dronedarone Hcl (Multaq) 400 Mg Tab 1 TAB PO BID for 90 Days, #180 TAB 3 Refills Ferrous Sulfate (Ferrous Sulfate) 325 Mg Tab 325 MG PO DAILY Lisinopril (Prinivil) 10 Mg Tab 10 MG PO QAM, TAB Nitroglycerin (Nitrostat) 0.4 Mg Tab 0.4 MG SL UD PRN for Chest Pain, BTL PLACE ONE TABLET UNDER THE TONGUE EVERY 5 MINUTES FOR UP TO 3 DOSES, IF NEEDED FOR CHEST PAIN. Admission Information HPI (per Admitting provider): 71 year old male who presents to the ER with abdominal bloating and pain. On 09/14 patient underwent cecectomy and lysis of adhesions for adenocarcinoma. Patient reports he saw his surgeon last week for follow up and was told he could advance his diet. Patient reports he then ate a very large meal. He started to develop abdominal bloating. He pain in his lower abdomen that he describes as a pressure from the bloating. He initially had 5 episodes of diarrhea however has been having regular bowel movements, most recently this morning. Patient called his surgeon about his symptoms and he was told to go on a liquid diet however the bloating continued. He denies nausea and vomiting. No chest pain, palpitations, or shortness of breath. He denies lightheadedness, dizziness, diaphoresis, or syncope. No fever or chills. In the ER, patient had a CT that is showing SBO, possibly partial. Patient was given IVF and IV Dilaudid. He reports he has been passing flatus, belching, and even had a small bowel movement since being here. He reports the abdominal distention has significantly improved and he is pain free. Physical Exam (per Admitting): General Appearance: no apparent distress Head: normocephalic Eyes: normal inspection ENT: hearing grossly normal Neck: supple, no JVD Respiratory/Chest: lungs clear, normal breath sounds, no respiratory distress Cardiovascular: no edema, normal peripheral pulses, + bradycardia (regular rhythm ) Abdomen/GI: soft, + tenderness (mild with deep palpation, lower abdomen ), + abnormal bowel sounds (hypoactive) Extremities/Musculoskelatal: normal inspection, no calf tenderness Neurologic/Psych: no motor/sensory deficits, alert, normal mood/affect, oriented x 3 Skin: normal color, warm/dry Hospital Course Patient presented with abdominal pain and bloating. CT a/p on admission showed partial SBO. General surgery was consulted. Case was also d/w patient's [place] colorectal surgeon Dr. Welch. Patient noted significant improvement in pain and bloating after having a small BM, belching and passing flatus the day of presentation. Patient was started on a full liquid diet, which he tolerated. Patient noted that this was the best that he has felt in the past 5-6 days. Patient was continued on his home medications; no changes were made. Patient deemed stable for discharge with Family Medicine and Colorectal surgery follow up. PE on discharge: General- awake; alert; NAD Eyes- EOMI; no scleral icterus Neck- no stridor; trachea midline Lungs- CTA bilaterally; no wheezes/crackles Heart- RRR; no m/r/g Abdomen- soft; NTND; nBS; surgical site healing well Back- no gross abnormalities Extremities- no c/c/e; no deformity Neuro- no focal deficits Skin- no appreciable rash or bruise . Total time spent on discharge = This includes examination of the patient, discharge planning, medication reconciliation, and communication with other providers. Discharge Instructions Discharge Instructions Admission Reason for Admission: SBO Discharge Discharge Diagnosis / Problem: Partial small bowel obstruction Discharge Goals Goal(s): Decrease discomfort Activity Recommendations Activity Limitations: resume your previous activity . Instructions / Follow-Up Instructions / Follow-Up Please keep your scheduled appointment with Colorectal surgery Dr. Welch today at 1:30pm. Please discuss with Dr. Welch any dietary restrictions and when to advance your diet. Please follow up with Family Medicine Dr. Mcfarlane October 07 at 1:20pm. (Dr. Yeager is out of the office) Current Hospital Diet Patient's current hospital diet: Full Liquid Diet Discharge Diet Recommended Diet: Full Liquid Diet Pending Studies Studies pending at discharge: no Medical Emergencies . Who to Call and When: Medical Emergencies: If at any time you feel your situation is an emergency, please call 911 immediately. . Non-Emergent Contact Non-Emergency issues call your: Primary Care Provider . . "Provider Documentation" section prepared by Carin Lyles. VTE Core Measure Inpt VTE Proph given/why not?: SCD's Additional Copies To Sharad Yeager M.D., Shane D., DJonnathanO.
[2016-10-04] MEDS: DRONEDARONE 400 MG TAB PO SCH (08:46)
[2016-10-04 08:47] VITALS: BP 116/64; PULSE 56; TEMP 36.6; O2SAT 95
[2016-10-04 08:55] VITALS: BP 116/64; PULSE 56; TEMP 36.6; O2SAT 95
[2016-10-04] MEDS ORDERED: ATORVASTATIN 40 MG TAB PO SCH (09:00)
[2016-10-04] MEDS ORDERED: ASPIRIN 81 MG ECTAB PO SCH (09:00)
[2016-10-04] MEDS ORDERED: FERROUS SULFATE 325 MG TAB PO SCH ×2 (09:00→21:00)
[2016-10-04] MEDS ORDERED: LISINOPRIL 10 MG TAB PO SCH (09:00)
--- NOTE | 2016-10-04 09:32 | DIAGNOSTIC IMAGING REPORT ---
ABDOMEN 2 VIEWS CLINICAL HISTORY: f/u SBO pain COMPARISON STUDY: 10/03/2016. FINDINGS: persistent air-filled small bowel as well as colon. Nonspecific air-fluid levels within the small bowel into masses extent colon. Appearance is similar compared to the prior study. Number of air-fluid levels perhaps slightly increased in the low central abdominal region. Contrast within the colon is present. IMPRESSION: Generalized ileus versus partial small bowel obstruction. No major change from the prior exam. Electronically signed by: Elías Pelletier M.D. 10/04/2016 9:31 AM Dictated Date/Time: 10/04/2016 9:27 AM
[2016-10-05] MEDS ORDERED: ATORVASTATIN 40 MG TAB PO SCH (09:00)
== END 2016-10-04 11:35 | disposition home or self-care (01) | DRG 390 ==
LOC: ENRESERVTM → ENRESERVDT → CANRESERV → C.EDB 02:18 → UNDOADMIN 09:47 → C.MSW 09:47
PROVIDERS: ADMIT Internal Medicine; ATTEND Internal Medicine
DX: K56.60 Unspecified intestinal obstruction (principal); I25.10 Atherosclerotic heart disease of native coronary artery without angina pectoris; I48.0 Paroxysmal atrial fibrillation; Z87.891 Personal history of nicotine dependence; I10 Essential (primary) hypertension; Z85.038 Personal history of other malignant neoplasm of large intestine; R91.1 Solitary pulmonary nodule; R00.1 Bradycardia, unspecified

== ENCOUNTER → 2016-12-21 | Outpatient (CLI) | payer BC ==
[~2016-12-21] MED LIST changes: -ASPI325T39 PO; +ASPI81TA28 PO; -ASPI81TA57 PO; +DRON400T PO; +FRRS300 PO; -METO1TAB31 PO; -NAPR1TAB9 PO; +TYLOTC500 PO
--- NOTE | 2016-12-21 10:33 | DIAGNOSTIC IMAGING REPORT ---
CT OF THE CHEST WITHOUT IV CONTRAST CLINICAL HISTORY: Pulmonary nodules COMPARISON STUDY: 09/12/2016 CT DOSE: 654.16 mGycm TECHNIQUE: CT of the thorax was performed from the thoracic inlet to the lung bases. Images are reviewed in the axial, sagittal, and coronal planes. IV contrast was not administered for this examination. FINDINGS: Thyroid: Imaged portions of the thyroid gland are normal in appearance. Thoracic aorta: The thoracic aorta is normal in course and caliber, noting standard 3 vessel arch anatomy. Heart: There are coronary artery calcifications present. Lungs and pleural spaces: No pleural effusions are visualized. There is no evidence of focal pulmonary consolidation. There is a stable 9 x 3 mm right middle lobe pulmonary nodule as visualized in image 211/299. There is a 9 mm pleural-based right lower lobe pulmonary nodule as visualized in image #256/299 which is felt to be essentially stable. There is a stable 3 mm right lower lobe pulmonary nodule as visualized in image #210/299. Mediastinum: Mediastinal lymph nodes remain at the upper limits of normal in size. Ama: There is no evidence of pathologic hilar adenopathy given the limitations of a noncontrast study Axilla: Clear. Upper abdomen: There are multiple hepatic hypodensities, likely representing cysts. There is cholelithiasis. Skeletal structures: There are no lytic or blastic osseous lesions. IMPRESSION: 1. Stable right lung pulmonary nodules 2. No evidence of pathologic adenopathy 3. Cholelithiasis Electronically signed by: Peyman Hope M.D. 12/21/2016 10:32 AM Dictated Date/Time: 12/21/2016 10:26 AM
== END | disposition home or self-care (01) ==
LOC: C.CTS 09:43
PROVIDERS: ATTEND Family Medicine
DX: R91.8 Other nonspecific abnormal finding of lung field (principal); K80.20 Calculus of gallbladder without cholecystitis without obstruction

== ENCOUNTER → 2017-06-16 | Outpatient (CLI) | payer BC ==
--- NOTE | 2017-06-16 13:41 | DIAGNOSTIC IMAGING REPORT ---
(CHEST) THORAX WITHOUT CT DOSE: 403.02 mGy.cm HISTORY: Right LUNG NODULES, 6 MONTH F/U TECHNIQUE: Multiaxial CT images of the chest were performed without contrast. A dose lowering technique was utilized adhering to the principles of ALARA. COMPARISON: Chest CT 12/21/2016. FINDINGS: There is a 8 x 5 mm nodule within the base of the right lower lobe on image 240 which is stable to slightly decreased in size. Stable 3 mm nodule within the right lower lobe on image 198. Stable 7 x 3 mm nodule within the right middle lobe on image 235. No new pulmonary nodules. The left lung is clear. The central airways are patent. No pleural effusions. No pneumothorax. No mediastinal or hilar lymphadenopathy. The heart is normal in size. Multiple stable hypodense lesions within the liver. These likely represent cysts. Normal adrenal glands. Cholelithiasis. IMPRESSION: 1. Stable to slight decrease in size of the dominant nodule within the base of the right lower lobe. The remaining pulmonary nodules within the right lung remain stable. No new pulmonary nodules. 2. Cholelithiasis. Please refer to below summary of Fleischner criteria recommendations for follow-up of incidental CT nodules (Fely Wang, Guidelines for management of small pulmonary nodules detected on CT scans: A statement from the Fleischner Society, Radiology 237: [phone].) SOLID NODULES Solitary nodule size: <6 mm * Low risk patients: no follow-up needed * high risk patients: optional CT at 12 months Solitary nodule size: 6-8 mm * Low risk patients: follow-up at 6-12 months, then consider further follow-up at 18-24 months * high risk patients: initial follow-up CT at 6-12 months and then at 18-24 months if no change Solitary nodule size: >8 mm * either low or high risk patients - consider follow-up CT at 3 months, and/or CT-PET, and/or biopsy Multiple nodules size: <6 mm * Low risk patients: no routine follow-up * high risk patients: optional CT at 12 months Multiple nodules size: 6-8 mm * Low risk patients: follow-up at 3-6 months, then consider further follow-up at 18-24 months * high risk patients: follow-up at 3-6 months, then at 18-24 months if no change Multiple nodules size: >8 mm * Low risk patients: follow-up at 3-6 months, then consider further follow-up at 18-24 months * high risk patients: follow-up at 3-6 months, then at 18-24 months if no change Note: newly detected indeterminate nodule in persons 35 years of age or older. * Low risk patients: minimal or absent history of smoking and/or other known risk factors * high risk patients: history of smoking or of other known risk factors (e.g. first degree relative with lung cancer, or exposure to asbestos, radon, uranium) * if a nodule up to 8 mm is partly solid or is ground glass further follow-up is required after 24 months to exclude possible slow growing adenocarcinoma (PABLO) SUBSOLID NODULES Solitary pure ground-glass nodule * nodule size <6 mm - no CT follow-up required * nodule size >=6 mm - follow-up CT at 6-12 months, then every 2 years until 5 years Solitary part-solid nodule * nodule size <6 mm - no CT follow-up required * nodule size >=6 mm - follow-up CT at 3-6 months. If unchanged, and solid component remains <6 mm, then annual follow-up for 5 years Multiple subsolid nodules * nodule size <6 mm - follow-up CT at 3-6 months, consider further follow-up at 2 and 4 years if stable * nodule size >=6 mm - follow-up CT at 3-6 months, subsequent management based on the most suspicious nodule(s) Electronically signed by: Sergio Connelly M.D. 06/16/2017 1:40 PM Dictated Date/Time: 06/16/2017 1:33 PM
== END | disposition home or self-care (01) ==
LOC: C.CTS 13:23
PROVIDERS: ATTEND Family Medicine
DX: R91.8 Other nonspecific abnormal finding of lung field (principal); K80.20 Calculus of gallbladder without cholecystitis without obstruction

== ENCOUNTER 2017-08-16 10:39 | Emergency (ER) | payer BC ==
[~2017-08-16] VITALS: Ht 172.7 cm; Wt 77.6 kg
[2017-08-16 10:44] VITALS: TEMP 36.6; Ht 172.7 cm; Wt 77.6 kg
[2017-08-16] MEDS ORDERED: SODIUM CHLORIDE 0.9% 1000ML 1,000 ML IV STA (10:55)
--- NOTE | 2017-08-16 11:00 | EMERGENCY ROOM VISIT NOTE ---
History Report prepared by Danyell: Richard Pearson Under the Supervision of: Dr. Karl Chan D.O. First contact with patient: 10:47 Chief Complaint: CARDIAC ASSESSMENT Stated Complaint: AFIB Nursing Triage Summary: pt reports went to [facility] for colonoscopy sent here for eval of afib. has hx of thinks it has broken now History of Present Illness The patient is a 72 year old male with a history of atrial fibrillation who presents to the Emergency Room with complaints of persistent atrial fibrillation that was detected prior to arrival this morning. He states that he was at [facility] this morning for a colonoscopy, but was told that he was in atrial fibrillation, and was sent here. The patient says that he did not have the colonoscopy, and thinks the atrial fibrillation was from the dehydration from the prep. He states that he has not had atrial fibrillation for a year and a half, after he was put on Multaq by Dr. Pearson. The patient says that he takes Aspirin but is not on any other blood thinners. He notes that he had a heart attack in 2011. 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 Review of Systems See HPI for pertinent positives & negatives. A total of 10 systems reviewed and were otherwise negative. Past Medical & Surgical Medical Problems: (1) Adenocarcinoma, colon (2) CAD (coronary artery disease) (3) Lung nodules (4) Paroxysmal a-fib Surgical Problems: (1) H/O prostatectomy (2) History of arthroscopy of right shoulder (3) History of cataract surgery (4) Hx of appendectomy (5) s/p cecectomy (6) s/p lysis of adhesions Family History Diabetes mellitus MOTHER Social History Smoking Status: Never Smoker Alcohol Use: occasionally Marital Status: Housing Status: lives with significant other Current/Historical Medications Scheduled Aspirin (Aspirin Ec), 162 MG PO DAILY Atorvastatin Calcium (Lipitor), 80 MG PO Q2D Dronedarone Hcl (Multaq), 1 TAB PO BID Lisinopril (Prinivil), 10 MG PO QAM Scheduled PRN Nitroglycerin (Nitrostat), 0.4 MG SL UD PRN for Chest Pain Allergies Coded Allergies: No Known Allergies (Unverified , 08/16/17) Physical Exam Vital Signs Date Time Temp Pulse Resp B/P (MAP) Pulse Ox O2 Delivery O2 Flow Rate FiO2 08/16/17 12:17 61 18 137/79 96 08/16/17 11:17 68 13 124/78 97 Room Air 08/16/17 11:17 99 Room Air 08/16/17 10:55 80 08/16/17 10:44 36.6 92 18 116/79 98 Room Air Physical Exam GENERAL: Patient is awake, alert, and in no acute distress. Patient is resting comfortably and showing no signs of anxiety EYES: The conjunctivae are clear. The pupils are round and reactive. EARS, NOSE, MOUTH AND THROAT: The nose is without any evidence of any deformity. Mucous membranes are moist tongue is midline NECK: The neck is nontender and supple. RESPIRATORY: Normal respiratory effort is noted there is no evidence of wheezing rhonchi or rales CARDIOVASCULAR: Regular rate and rhythm noted there no murmurs rubs or gallops normal S1 normal S2 GASTROINTESTINAL: The abdomen is soft. Bowel sounds are present in all quadrants. Abdomen is nontender MUSCULOSKELETAL/EXTREMITIES: There is no evidence of gross deformity full range of motion is noted in the hips and shoulders SKIN: There is no obvious evidence of any rash. There are no petechiae, pallor or cyanosis noted. NEUROLOGIC: Patient is awake alert and oriented x3. Medical Decision & Procedures ER Provider Diagnostic Interpretation: X-ray results as stated below per interpretation by me and the radiologist. CHEST ONE VIEW PORTABLE CLINICAL HISTORY: CHEST PAIN dyspnea COMPARISON STUDY: 10/03/2016 FINDINGS: The bones soft tissues and hemidiaphragms are normal. The cardiomediastinal silhouette is normal. The lungs are clear. The pulmonary vasculature is normal. IMPRESSION: Negative chest. The above report was generated using voice recognition software. It may contain grammatical, syntax or spelling errors. Electronically signed by: Elías Pelletier M.D. 08/16/2017 11:17 AM Dictated Date/Time: 08/16/2017 11:17 AM Laboratory Results 08/16/17 11:13 Red Blood Count 4.96, Mean Corpuscular Volume 91.3, Mean Corpuscular Hemoglobin 32.3, Mean Corpuscular Hemoglobin Concent 35.3, Mean Platelet Volume 9.4, Neutrophils (%) (Auto) 65.8, Lymphocytes (%) (Auto) 18.1, Monocytes (%) (Auto) 13.0, Eosinophils (%) (Auto) 2.4, Basophils (%) (Auto) 0.5, Neutrophils # (Auto ) 3.61, Lymphocytes # (Auto) 0.99, Monocytes # (Auto) 0.71, Eosinophils # (Auto ) 0.13, Basophils # (Auto) 0.03 08/16/17 11:13 Test 08/16/17 11:13 White Blood Count 5.48 K/uL (4.8-10.8) Red Blood Count 4.96 M/uL (4.7-6.1) Hemoglobin 16.0 g/dL (14.0-18.0) Hematocrit 45.3 % (42-52) Mean Corpuscular Volume 91.3 fL (80-100) Mean Corpuscular Hemoglobin 32.3 pg (25-34) Mean Corpuscular Hemoglobin Concent 35.3 g/dl (32-36) Platelet Count 208 K/uL (130-400) Mean Platelet Volume 9.4 fL (7.4-10.4) Neutrophils (%) (Auto) 65.8 % Lymphocytes (%) (Auto) 18.1 % Monocytes (%) (Auto) 13.0 % Eosinophils (%) (Auto) 2.4 % Basophils (%) (Auto) 0.5 % Neutrophils # (Auto) 3.61 K/uL (1.4-6.5) Lymphocytes # (Auto) 0.99 K/uL (1.2-3.4) Monocytes # (Auto) 0.71 K/uL (0.11-0.59) Eosinophils # (Auto) 0.13 K/uL (0-0.5) Basophils # (Auto) 0.03 K/uL (0-0.2) RDW Standard Deviation 43.2 fL (36.4-46.3) RDW Coefficient of Variation 13.1 % (11.5-14.5) Immature Granulocyte % (Auto) 0.2 % Immature Granulocyte # (Auto) 0.01 K/uL (0.00-0.02) Prothrombin Time 12.3 SECONDS (9.0-12.0) Prothromb Time International Ratio 1.2 (0.9-1.1) Activated Partial Thromboplast Time 27.9 SECONDS (21.0-31.0) Partial Thromboplastin Ratio 1.1 Anion Gap 6.0 mmol/L (3-11) Est Creatinine Clear Calc Drug Dose 52.0 ml/min Estimated GFR () 66.1 Estimated GFR (Non- 57.0 BUN/Creatinine Ratio 11.9 (10-20) Calcium Level 9.0 mg/dl (8.5-10.1) Magnesium Level 2.3 mg/dl (1.8-2.4) Total Bilirubin 1.4 mg/dl (0.2-1) Direct Bilirubin 0.3 mg/dl (0-0.2) Aspartate Amino Transf (AST/SGOT) 16 U/L (15-37) Alanine Aminotransferase (ALT/SGPT) 37 U/L (12-78) Alkaline Phosphatase 63 U/L (45-117) Troponin I < 0.015 ng/ml (0-0.045) Total Protein 7.6 gm/dl (6.4-8.2) Albumin 4.0 gm/dl (3.4-5.0) Lipase 122 U/L (73-393) Thyroid Stimulating Hormone (TSH) 1.600 uIu/ml (0.300-4.500) Free Thyroxine 1.21 ng/dl (0.80-1.60) Laboratory results per my review. Medications Administered Medications (Trade) Dose Ordered Sig/Deann Route Start Time Stop Time Status Last Admin Dose Admin Sodium Chloride 1,000 ml @ 999 mls/hr Q1H1M STAT IV 08/16/17 10:55 08/16/17 11:55 DC 08/16/17 11:17 999 MLS/HR ECG Indication: palpitations Rate (beats per minute): 63 Rhythm: normal sinus Findings: no ectopy, other (RBBB) Change: no significant change (from 10/03/16) ED Course 1050: The patient was evaluated in room C2B. A complete history and physical examination were performed. 1055: Ordered NSS 1000 ml @ 999 mls/hr IV. 1102: I discussed the patient with Dr. Pearson - [facility] [place] cardiology - he reviewed the patient's previous visits, and the patient has declined anticoagulation in the past. Dr. Pearson will set up a follow-up appointment to discuss anticoagulation when his GI workup is finished. 1145: Upon reevaluation, the patient is resting comfortably. I discussed the results and treatment plan with him. He verbalized agreement of the treatment plan. He will be discharged home. Medical Decision Differential diagnosis: Etiologies such as premature contractions, electrolyte abnormality, cardiac dysrhythmia, thyroid dysfunction, pulmonary embolism, infection, gastrointestinal, as well as others were entertained. Nursing notes reviewed. The patient is a 72-year-old male who is a history of paroxysmal atrial fibrillation who presented to the emergency department because he had an episode of atrial fibrillation prior to having a colonoscopy. The patient was in normal sinus rhythm when I evaluated him. He was treated with IV fluids. I discussed the patient's laboratory radiographic studies with him. I also discussed his case with his primary tube test technician. Currently the patient is not on anticoagulation. He did not wish to start anticoagulation and currently he is being worked up for anemia which is why he has a colonoscopy scheduled for today. At this time I encouraged him to have a colonoscopy today. He was also encouraged to follow-up with his primary tube test technician for further evaluation and for any medication changes or possibly adding a blood thinner to his medication regimen. I discussed the reasons why he should be on a blood thinner. He is where the stroke recently. He was encouraged to follow-up with his tube test technician but return to the emergency Department immediately if symptoms change worsen or the need arises. Medication Reconcilliation Current Medication List: was personally reviewed by me Blood Pressure Screening Patient's blood pressure: Normal blood pressure Consults Time Called: 1058 Consulting Physician: Dr. Lili GÓMEZ cardiology Returned Call: 1102 I discussed the patient with Dr. Lili GÓMEZ cardiology - he reviewed the patient's previous visits, and the patient has declined anticoagulation in the past. Dr. Pearson will set up a follow-up appointment to discuss anticoagulation when his GI workup is finished. Impression Primary Impression: Palpitations Additional Impression: Paroxysmal a-fib Scribe Attestation The scribe's documentation has been prepared under my direction and personally reviewed by me in its entirety. I confirm that the note above accurately reflects all work, treatment, procedures, and medical decision making performed by me. Departure Information Dispostion Home / Self-Care Referrals Sharad Yeager M.D. (PCP) Patient Instructions Atrial Fibrillation, [facility] Additional Instructions Follow-up with your tube test technician as directed. Continue all medications as prescribed. Return to the emergency Department immediately if symptoms change worsen or the need arises. Problem Qualifiers
[2017-08-16 11:17] VITALS: O2SAT 99
--- NOTE | 2017-08-16 11:19 | DIAGNOSTIC IMAGING REPORT ---
CHEST ONE VIEW PORTABLE CLINICAL HISTORY: CHEST PAIN dyspnea COMPARISON STUDY: 10/03/2016 FINDINGS: The bones soft tissues and hemidiaphragms are normal. The cardiomediastinal silhouette is normal. The lungs are clear. The pulmonary vasculature is normal. IMPRESSION: Negative chest. The above report was generated using voice recognition software. It may contain grammatical, syntax or spelling errors. Electronically signed by: Elías Pelletier M.D. 08/16/2017 11:17 AM Dictated Date/Time: 08/16/2017 11:17 AM
[2017-08-16 11:27] LABS: BASO % 0.5 %; BASO ABS # 0.03 K/uL (0-0.2); EOS % 2.4 %; EOS ABS # 0.13 K/uL (0-0.5); HEMATOCRIT 45.3 % (42-52); IG# 0.01 K/uL (0.00-0.02); LYMPH % 18.1 %; LYMPH ABS # 0.99 K/uL (1.2-3.4); MEAN CELL VOLUME 91.3 fL (80-100); MEAN CORPUSCULAR HEMOGLOBIN 32.3 pg (25-34); MEAN CORPUSCULAR HGB CONC 35.3 g/dl (32-36); MEAN PLATELET VOLUME 9.4 fL (7.4-10.4); MONO ABS # 0.71 K/uL (0.11-0.59); NEUT % 65.8 %; NEUT ABS # 3.61 K/uL (1.4-6.5); PLATELET COUNT 208 K/uL (130-400); RED CELL DISTRIBUTION WIDTH CV 13.1 % (11.5-14.5); RED CELL DISTRIBUTION WIDTH SD 43.2 fL (36.4-46.3); WHITE BLOOD COUNT 5.48 K/uL (4.8-10.8)
[2017-08-16 11:37] LABS: INR 1.2 (0.9-1.1); PTT PATIENT 27.9 SECONDS (21.0-31.0)
[2017-08-16 11:40] LABS: ALT/SGPT 37 U/L (12-78); AST/SGOT 16 U/L (15-37); BLOOD UREA NITROGEN 15 mg/dl (7-18); CARBON DIOXIDE 27 mmol/L (21-32); CREATININE 1.26 mg/dl (0.60-1.40); GLUCOSE 91 mg/dl (70-99); LIPASE 122 U/L (73-393); POTASSIUM 4.4 mmol/L (3.5-5.1); SODIUM 135 mmol/L (136-145)
[2017-08-16 11:49] LABS: ALKALINE PHOSPHATASE 63 U/L (45-117); TOTAL PROTEIN 7.6 gm/dl (6.4-8.2)
[2017-08-16 12:17] VITALS: BP 137/79; PULSE 61; O2SAT 96
== END 2017-08-16 12:20 | disposition home or self-care (01) ==
LOC: C.EDB 10:40 → C.EDC 12:20
DX: R00.2 Palpitations (principal); I48.0 Paroxysmal atrial fibrillation; I25.10 Atherosclerotic heart disease of native coronary artery without angina pectoris; C18.9 Malignant neoplasm of colon, unspecified; Z79.82 Long term (current) use of aspirin; Z83.3 Family history of diabetes mellitus

== ENCOUNTER 2025-06-25 09:14 | Inpatient (IN) ==
[2025-06-25] MEDS ORDERED: SODIUM CHLORIDE 0.9% 100 ML IV PRN (09:30)
[2025-06-25 09:59] LABS: Hematocrit (blood only) 18.7 % (42.0-52.0); Hemoglobin 5.3 g/dL (14.0-18.0); Mean Corpuscular Hemoglobin 25.4 pg (25.0-34.0); Mean Corpuscular Volume 89.5 fL (80.0-100.0); Platelet Count 230 K/uL (130-400); RDW Standard Deviation 57.1 fL (36.4-46.3); Red Blood Count 2.09 M/uL (4.70-6.10); White Blood Count 5.83 K/ul (4.8-10.8)
[2025-06-25 10:18] LABS: Immature Granulocytes # (auto) 0.05 K/uL (0.01-0.20); Immature Granulocytes % (auto) 0.9 %; Ovalocytes 1+; Polychromasia 1+; Reticulocytes # 0.130 10^6/uL (0.020-0.100); Tear Drop Cells 1+
[2025-06-25 10:34] LABS: Alanine Aminotransferase 16.0 U/L (7-52); Albumin Globulin Ratio 1.9 (0.9-2); Albumin Level 4.0 gm/dl (3.4-5.0); Alkaline Phosphatase 40.0 U/L (34-104); Anion Gap 10.0 (3-11); Bilirubin,Total 0.8 mg/dl (0.2-1.0); Blood Urea Nitrogen 19.0 mg/dl (6-23); Calcium 8.8 mg/dl (8.6-10.3); Carbon Dioxide 24.0 mmol/L (21-32); Chloride 107.0 mmol/L (98-107); Creatinine Clr Calc Pharmacy 67.3 ml/min; Globulin 2.1 gm/dl (2.5-4.0); Glucose 107.0 mg/dl (70-99(Fasting)); Iron 328.0 mcg/dl (35-175); Potassium 3.8 mmol/L (3.5-5.1); Sodium 141.0 mmol/L (136-145); Total Protein 6.1 gm/dl (6.0-8.3); Transferrin 300.0 mg/dl (200-360)
[2025-06-25 10:38] LABS: Folate (Folic Acid),Ser orPlas 11.86 ng/ml (>5.38)
[2025-06-25 10:39] LABS: Vitamin B12 188.0 pg/ml (180-914)
--- NOTE | 2025-06-25 10:45 | Emergency Department Note ---
History of Present Illness General Chief complaint: Referred by Doctor Stated complaint: BLOOD TRANSFUSION, REF BY DOC Time Seen by Provider: 06/25/25 09:29 Source: patient Mode of arrival: ambulatory Limitations: no limitations History of Present Illness Patient is a 80-year-old male with history of colon cancer status post recent partial resection 4 weeks prior presenting for abnormal outpatient lab work. He had routine lab work performed yesterday which showed a low hemoglobin. He has had progressively decreasing hemoglobin since he has been out of surgery. He did feel more tired yesterday which was new for him. Denies any bloody stools. He has chronically dark stools from iron supplementation but denies any tarry stools or melena. Denies lightheadedness, dizziness, palpitations, chest pain or shortness of breath. He is on Eliquis for A-fib at baseline. No prior blood transfusions noted in the past. Home Medications Medication Instructions Recorded Confirmed Type atorvastatin 80 mg tablet (Lipitor) 80 mg PO QPM 02/15/19 06/25/25 History nitroglycerin 0.4 mg sublingual 0.4 mg sublingual Q5M PRN Chest 03/29/19 06/25/25 History tablet (Nitrostat) Pain aspirin 81 mg tablet,delayed 81 mg PO DAILY 05/18/20 06/25/25 History release (Aspir-) multivitamin with iron 1 tab PO DAILY 01/18/23 06/25/25 History dronedarone 400 mg tablet (Multaq) 400 mg PO BID #60 tabs 11/08/24 06/25/25 Rx gabapentin 300 mg capsule 300 mg PO HS 04/22/25 06/25/25 History metoprolol succinate 25 mg 25 mg PO DAILY 05/25/25 06/25/25 History tablet,extended release 24 hr apixaban 5 mg tablet (Eliquis) 5 mg PO BID 06/25/25 06/25/25 History Allergies Allergy/AdvReac Type Severity Reaction Status Date / Time No Known Allergies Allergy Verified 04/22/25 10:42 Past Med/Surg History Problem List (Updated 06/25/25 @ 14:31 by Irais Dodson PA-C) RLS (restless legs syndrome) Dyslipidemia Acute on chronic anemia Tachy-clara syndrome Sinus bradycardia Anemia Paroxysmal atrial fibrillation with RVR Atypical chest pain BARBA (dyspnea on exertion) Anticoagulant long-term use Mitral regurgitation Hypertension CAD (coronary artery disease) (Chronic) "2012 - RCA STEMI, s/p BMS x 3 and aspiration thrombectomy to RCA" Paroxysmal a-fib (Chronic) Lung nodules (Chronic) Adenocarcinoma, colon (Chronic) Surgical History History of colectomy Hx of appendectomy History of cataract surgery History of arthroscopy of right shoulder H/O prostatectomy History of colonoscopy 05/21/25 hemicolectomy with anastomosis; [facility] [place]; Dr Coy Family History Other Cancer Diabetes Stroke Social History Smoking Status: Never smoker Hx Alcohol Use: No Hx Substance Use: No Preferred Language: Slovak marital status: Current Living Situation: Spouse Feels Safe at Home: Yes Review of Systems Review of systems negative outside of positive findings mentioned in HPI. Physical Exam Vital Signs Vital Signs - 24 hr 06/25/25 09:22 06/25/25 09:48 06/25/25 10:14 Temperature 36.6 C Temperature Source Skin Pulse Rate 95 H 62 Pulse Rate [Apical] 59 L Pulse Rhythm Regular Pulse Rhythm [Apical] Regular Pulse Strength Normal Pulse Strength [Apical] Normal Respiratory Rate 20 16 Respiratory Effort / Characteristics Non-Labored Spontaneous Non-Labored Spontaneous Respiratory Depth Normal Normal Respiratory Pattern Regular Blood Pressure 142/82 H Blood Pressure [Right Arm] 129/65 Blood Pressure Mean 102 Blood Pressure Mean [Right Arm] 86 Blood Pressure Position Pulse Oximetry 93 99 Oxygen Delivery Method Room Air Room Air Oxygen Flow Rate Sepsis Recent Fever Within 48 Hours No Sepsis New/Unexplained Change in Mental Status N/A Sepsis Action Taken by Nursing No Action Required 06/25/25 11:15 06/25/25 11:47 06/25/25 12:06 Temperature 37.1 C 37.0 C Temperature Source Oral Oral Pulse Rate 62 57 L Pulse Rate [Apical] 62 Pulse Rhythm Pulse Rhythm [Apical] Regular Pulse Strength Pulse Strength [Apical] Respiratory Rate 18 16 16 Respiratory Effort / Characteristics Non-Labored Spontaneous Respiratory Depth Normal Respiratory Pattern Regular Blood Pressure 112/60 112/59 L Blood Pressure [Right Arm] 107/80 Blood Pressure Mean 77 76 Blood Pressure Mean [Right Arm] 89 Blood Pressure Position Semi-fowlers Pulse Oximetry 99 100 97 Oxygen Delivery Method Room Air Oxygen Flow Rate 0 0 Sepsis Recent Fever Within 48 Hours Sepsis New/Unexplained Change in Mental Status Sepsis Action Taken by Nursing 06/25/25 12:21 06/25/25 12:51 06/25/25 13:51 Temperature 36.9 C 36.7 C 36.9 C Temperature Source Oral Oral Oral Pulse Rate 58 L 59 L 59 L Pulse Rate [Apical] Pulse Rhythm Regular Regular Regular Pulse Rhythm [Apical] Pulse Strength Normal Normal Normal Pulse Strength [Apical] Respiratory Rate 16 18 16 Respiratory Effort / Characteristics Respiratory Depth Respiratory Pattern Blood Pressure 111/60 125/72 125/64 Blood Pressure [Right Arm] Blood Pressure Mean 77 89 84 Blood Pressure Mean [Right Arm] Blood Pressure Position Semi-fowlers Semi-fowlers Pulse Oximetry 99 99 99 Oxygen Delivery Method Oxygen Flow Rate 0 0 0 Sepsis Recent Fever Within 48 Hours Sepsis New/Unexplained Change in Mental Status Sepsis Action Taken by Nursing 06/25/25 14:11 Temperature 36.9 C Temperature Source Oral Pulse Rate 57 L Pulse Rate [Apical] Pulse Rhythm Pulse Rhythm [Apical] Pulse Strength Pulse Strength [Apical] Respiratory Rate 16 Respiratory Effort / Characteristics Respiratory Depth Respiratory Pattern Blood Pressure 118/61 Blood Pressure [Right Arm] Blood Pressure Mean 80 Blood Pressure Mean [Right Arm] Blood Pressure Position Semi-fowlers Pulse Oximetry 98 Oxygen Delivery Method Oxygen Flow Rate 0 Sepsis Recent Fever Within 48 Hours Sepsis New/Unexplained Change in Mental Status Sepsis Action Taken by Nursing See below. Constitutional WD/WN, vitals as above Eyes Pale conjunctiva ENMT external ear and nose normal, oropharynx normal Respiratory normal respiratory effort, lungs clear to auscultation Cardiovascular RRR, no murmur, no edema Gastrointestinal (Abdomen) normal bowel sounds, soft, nontender, no hepatosplenomegaly Well healing vertical incision, Hemoccult positive with melena noted Course Administered Medications Discontinued Medications Ioversol (Optiray 320 125ml) 120 ml IV ONCE ONE Stop: 06/25/25 11:07 Last Admin: 06/25/25 11:06 Dose: 120 ml Documented By: LEATHA Medical Decision Making Differential Diagnosis DDx includes but not limited to: Acute blood loss anemia, lower GI bleed, upper GI bleed, iron deficiency anemia Medical Records Attestation: I reviewed the patient's medical records. Home Medications Current Medication List: was personally reviewed by me Laboratory Data Attestation: I reviewed the patient's lab results. 06/25/25 09:35 06/25/25 09:35 Lab Results 06/25/25 06/25/25 06/25/25 Range/Units 09:35 09:40 10:05 WBC 5.83 (4.8-10.8) K/ul RBC 2.09 L (4.70-6.10) M/uL Hgb 5.3 L* (14.0-18.0) g/dL Hct 18.7 L* (42.0-52.0) % MCV 89.5 (80.0-100.0) fL MCH 25.4 (25.0-34.0) pg MCHC 28.3 L (32.0-36.0) g/dL RDW Std Deviation 57.1 H (36.4-46.3) fL RDW Coeff of Melba 18.4 H (11.5-14.5) % Plt Count 230 (130-400) K/uL MPV 10.2 (9.4-12.4) fL Immature Gran % (Auto) 0.9 % Neut % (Auto) 67.2 % Lymph % (Auto) 17.2 % [place] % (Auto) 10.1 % Eos % (Auto) 4.1 % Baso % (Auto) 0.5 % Reticulocyte % (Auto) 6.29 H (0.50-2.00) % Neut # (Auto) 3.92 (1.40-6.50) K/uL Lymph # (Auto) 1.00 L (1.20-3.40) K/uL [place] # (Auto) 0.59 (0.11-0.59) K/uL Eos # (Auto) 0.24 (0.00-0.50) K/uL Baso # (Auto) 0.03 (0.00-0.20) K/uL Reticulocyte # 0.130 H (0.020-0.100) 10^6/uL Immature Gran # (Auto) 0.05 (0.01-0.20) K/uL Absolute Nucleated RBC 0.02 (0.00-0.12) K/uL Nucleated RBC % (auto) 0.3 % Polychromasia 1+ Tear Drop Cells 1+ Ovalocytes 1+ Peripher Smr Path Cons Sodium 141 (136-145) mmol/L Potassium 3.8 (3.5-5.1) mmol/L Chloride 107 (98-107) mmol/L Carbon Dioxide 24 (21-32) mmol/L Anion Gap 10 (3-11) BUN 19 (6-23) mg/dl Creatinine 0.89 (0.6-1.4) mg/dl Est Cr Clr Drug Dosing 67.3 ml/min eGFR 87.17 BUN/Creatinine Ratio 21.3 H (10-20) Glucose 107 H (70-99(Fasting)) mg/dl Calcium 8.8 (8.6-10.3) mg/dl Iron 328 H (35-175) mcg/dl Transferrin 300 (200-360) mg/dl Ferritin 16.0 (8-388) ng/ml Total Bilirubin 0.8 (0.2-1.0) mg/dl AST 11 L (13-39) U/L ALT 16 (7-52) U/L Alkaline Phosphatase 40 (34-104) U/L Lactate Dehydrogenase 166 (86-244) U/L Total Protein 6.1 (6.0-8.3) gm/dl Albumin 4.0 (3.4-5.0) gm/dl Globulin 2.1 L (2.5-4.0) gm/dl Albumin/Globulin Ratio 1.9 (0.9-2) Vitamin B12 188 (180-914) pg/ml Folate 11.86 (>5.38) ng/ml Blood Type A Positive Blood Type Recheck A Positive Antibody Screen NEGATIVE Crossmatch See Detail Imaging Data Radiologist's Impression: Abdomen/Pelvis CTA 06/25/25 10:34 CT ANGIOGRAM OF THE ABDOMEN AND PELVIS CLINICAL HISTORY: GI bleeding. COMPARISON STUDY: Abdominal CT dated 05/25/2025 and 10/03/2016. TECHNIQUE: Following the IV administration of 120 cc of Optiray 320, CT angiogram of the abdomen and pelvis was performed from the lung bases the proximal femora. Images are reviewed in the axial, sagittal, and coronal planes. 3-D MIPS images are created and assessed. IV contrast was administered without complication. A dose lowering technique was utilized adhering to the principles of ALARA. CT DOSE: 921.32 mGy.cm FINDINGS: Lower chest: The heart is enlarged and without pericardial effusion. The core arteries are densely calcified. There is a tiny hiatal hernia. There is bibasilar scarring/atelectasis. No airspace consolidation or pleural effusion is identified. A 10 mm ovoid nodule in the right middle lobe on image #25 is unchanged dating back to 2017, as are 5 mm and 11 mm right lower lobe nodules seen on images #32 and #69. Liver: The contrast-enhanced liver is normal in size, contour, and attenuation. There is no intrahepatic biliary ductal dilatation. The main portal veins appear patent. Numerous hepatic cysts measuring up to 3.4 cm. Gallbladder: There are numerous layering gallstones with no CT evidence of acute cholecystitis. Spleen: Normal in size and attenuation noting heterogeneous arterial phase enhancement. Pancreas: A 1.6 cm simple cystic lesion arising from the pancreatic tail on image #80 is unchanged and likely represents a sidebranch IPMN versus mucinous cystic neoplasm. The pancreas is otherwise normal as imaged. Adrenal glands: Unremarkable. Kidneys: The contrast enhanced kidneys are normal in size and without hydronephrosis. The kidneys enhance symmetrically. Renal cysts measure up to 4.5 cm. Additional subcentimeter cortical hypodensities also likely represent cysts but are too small for definitive characterization. Abdominal aorta and iliac arteries: There is moderate to advanced atherosclerotic calcification and mild ectasia of the abdominal aorta. No dissection is seen. The iliac arteries are widely patent bilaterally noting atherosclerotic plaque and irregularity. Major branches of the abdominal aorta: The celiac trunk, superior mesenteric, and inferior mesenteric arteries are widely patent. The accessory left hepatic artery arises from the left gastric artery. The splenic artery is patent. There are 2 left renal arteries and a single right renal artery. The renal arteries are patent. Bowel: There is postsurgical change from right hemicolectomy with ileocolic anastomosis. No bowel obstruction is seen. [id number] fecal retention is noted throughout the remaining colon. No tumoral contrast is identified suggesting a site of active GI bleeding. Peritoneum: No intraperitoneal free air as seen. There is a small volume of pelvic ascites. A midline surgical incision is noted. Lymphadenopathy: None. Pelvic viscera: The prostate gland is surgically absent. The bladder is distended, and the wall appears thickened/trabeculated indicating chronic outlet obstruction. There are bilateral fat-containing left groin hernias. Skeletal structures: The skeletal structures are osteopenic. There is moderate lumbosacral spondylosis. No lytic or blastic bony lesions are seen. IMPRESSION: 1. Unremarkable CT angiogram of the abdominal aorta and its major branches noting atherosclerotic plaque and irregularity. 2. There is postsurgical change from right hemicolectomy with ileocolic anastomosis. No intraluminal contrast is identified to suggest a site of active GI bleeding. 3. Small volume pelvic ascites. 4. Cardiomegaly noting coronary artery atherosclerosis. 5. Cholelithiasis. 6. Additional findings as above. ACT 112: Negative or not required by law. Electronically signed by: Andreas Reeves M.D. 06/25/2025 11:59 AM MDM Narrative Patient is a 80-year-old male who presents for low hemoglobin level. Hemodynamically stable on arrival. Repeat hemoglobin today is 5.3. Down from 8.0 after surgery 4 weeks prior. No significant GI bleeding noted here today. 2 units of packed red blood cells were ordered for transfusion here in the ED. Anemia evaluation labs were also ordered. CTA of the abdomen pelvis with GI protocol was ordered without evidence of acute active bleed noted. No concerning postsurgical changes noted. Hemoccult positive for melena. Will admit to [facility] service for further management of acute blood loss anemia likely secondary to GI bleed. Impression & Plan Acute blood loss anemia, GI (gastrointestinal bleed) Discharge Plan Visit Data Chief Complaint: Referred by Doctor Stated Complaint: BLOOD TRANSFUSION, REF BY DOC ED Provider: Jed Blanco Discharge Problem: Acute blood loss anemia, GI (gastrointestinal bleed) Patient Disposition: Admitted As Inpatient Condition: Good Discharge Instructions Interventions: ED Discharge Assessment Last Done: 06/25/25 14:21 Forms Stand Alone Forms: My [facility] Prescriptions Prescriptions: No Action multivitamin with iron Tablet 1 tab PO DAILY Patient Comments: 06/25- otc unable to verify gabapentin 300 mg capsule 300 mg PO HS Rx Instructions: take 1 hour before bed for RLS aspirin [Aspir-81] 81 mg tablet,delayed release (DR/EC) 81 mg PO DAILY Patient Comments: 06/25- otc unable to verify Multaq 400 mg tablet 400 mg PO BID Qty: 60 5RF Rx Instructions: must administer with a meal/food atorvastatin [Lipitor] 80 mg tablet 80 mg PO QPM nitroglycerin [Nitrostat] 0.4 mg tablet, sublingual 0.4 mg sublingual Q5M PRN (Reason: Chest Pain) metoprolol succinate 25 mg tablet extended release 24 hr 25 mg PO DAILY Eliquis 5 mg tablet 5 mg PO BID Rx Instructions: TAKE 1 TABLET BY MOUTH TWICE A DAY Referrals Referrals: Sharad Yeager MD [Primary Care Provider] -
[2025-06-25 10:52] LABS: Ferritin 16.0 ng/ml (8-388)
[2025-06-25] MEDS: OPTIRAY 320 125ml IV ONE (11:06)
--- NOTE | 2025-06-25 12:01 | CT Scan Report ---
CT ANGIOGRAM OF THE ABDOMEN AND PELVIS CLINICAL HISTORY: GI bleeding. COMPARISON STUDY: Abdominal CT dated 05/25/2025 and 10/03/2016. TECHNIQUE: Following the IV administration of 120 cc of Optiray 320, CT angiogram of the abdomen and pelvis was performed from the lung bases the proximal femora. Images are reviewed in the axial, sagit catalino, and coronal planes. 3-D MIPS images are created and assessed. IV contrast was administered witho ut complication. A dose lowering technique was utilized adhering to the principles of ALARA. CT DOSE: 921.32 mGy.cm FINDINGS: Lower chest: The heart is enlarged and without pericardial effusion. The core arteries are densely ca lcified. There is a tiny hiatal hernia. There is bibasilar scarring/atelectasis. No airspace consolid ation or pleural effusion is identified. A 10 mm ovoid nodule in the right middle lobe on image #25 i s unchanged dating back to 2017, as are 5 mm and 11 mm right lower lobe nodules seen on images #32 an d #69. Liver: The contrast-enhanced liver is normal in size, contour, and attenuation. There is no intrahepa tic biliary ductal dilatation. The main portal veins appear patent. Numerous hepatic cysts measuring up to 3.4 cm. Gallbladder: There are numerous layering gallstones with no CT evidence of acute cholecystitis. Spleen: Normal in size and attenuation noting heterogeneous arterial phase enhancement. Pancreas: A 1.6 cm simple cystic lesion arising from the pancreatic tail on image #80 is unchanged an d likely represents a sidebranch IPMN versus mucinous cystic neoplasm. The pancreas is otherwise norm al as imaged. Adrenal glands: Unremarkable. Kidneys: The contrast enhanced kidneys are normal in size and without hydronephrosis. The kidneys enh ance symmetrically. Renal cysts measure up to 4.5 cm. Additional subcentimeter cortical hypodensities also likely represent cysts but are too small for definitive characterization. Abdominal aorta and iliac arteries: There is moderate to advanced atherosclerotic calcification and m ild ectasia of the abdominal aorta. No dissection is seen. The iliac arteries are widely patent bilat erally noting atherosclerotic plaque and irregularity. Major branches of the abdominal aorta: The celiac trunk, superior mesenteric, and inferior mesenteric arteries are widely patent. The accessory left hepatic artery arises from the left gastric artery. T he splenic artery is patent. There are 2 left renal arteries and a single right renal artery. The presley al arteries are patent. Bowel: There is postsurgical change from right hemicolectomy with ileocolic anastomosis. No bowel obs truction is seen. Sphi-[id number] fecal retention is noted throughout the remaining colon. No tumora l contrast is identified suggesting a site of active GI bleeding. Peritoneum: No intraperitoneal free air as seen. There is a small volume of pelvic ascites. A midline surgical incision is noted. Lymphadenopathy: None. Pelvic viscera: The prostate gland is surgically absent. The bladder is distended, and the wall appea rs thickened/trabeculated indicating chronic outlet obstruction. There are bilateral fat-containing l eft groin hernias. Skeletal structures: The skeletal structures are osteopenic. There is moderate lumbosacral spondylosi s. No lytic or blastic bony lesions are seen. IMPRESSION: 1. Unremarkable CT angiogram of the abdominal aorta and its major branches noting atherosclerotic ken que and irregularity. 2. There is postsurgical change from right hemicolectomy with ileocolic anastomosis. No intraluminal contrast is identified to suggest a site of active GI bleeding. 3. Small volume pelvic ascites. 4. Cardiomegaly noting coronary artery atherosclerosis. 5. Cholelithiasis. 6. Additional findings as above. ACT 112: Negative or not required by law. Electronically signed by: Andreas Reeves M.D. 06/25/2025 11:59 AM
--- NOTE | 2025-06-25 12:57 | History & Physical Report ---
Date of Service June 25, 2025 Assessment & Plan (1) Acute on chronic anemia: Plan: Patient is 80-year-old male with PMH anemia, colon cancer S/P right hemicolectomy with ileostomy on 05/21/[address] Coy at [facility] with subsequent ileus, CKD III, paroxysmal atrial fibrillation, CAD, dyslipidemia, RLS, history of prostate cancer presented to ER with c/o abnormal labs - "low hemoglobin". Fatigue since procedure in May but yesterday more fatigued with exertion. Denies CP, SOB, dizziness. Previous diagnosis of iron deficiency anemia Last Venofer on 04/14/25. Per outpatient chart review: 05/28/25 Hgb: 8.3, 06/11/2025 Hgb: 8.8, 06/24/2025 Hgb: 5.1 Today in ER vitals stable. H/H: 5.3/18, retic%: 6.2, retic #: 0.13. +heme positive stool test in ER CT Abd/pelvis: 1. Unremarkable CT angiogram of the abdominal aorta and its major branches noting atherosclerotic plaque and irregularity. 2. There is postsurgical change from right hemicolectomy with ileocolic anastomosis. No intraluminal contrast is identified to suggest a site of active GI bleeding. 3. Small volume pelvic ascites. 4. Cardiomegaly noting coronary artery atherosclerosis. 5. Cholelithiasis. Typed and crossed in ER and ordered 2 units PRBC transfusion and 1st unit is being transfused Obtain peripheral smear, LDH, haptoglobin Monitor H&H Follows with [facility] hematology. Attempted to contact Dr Alvarado however he alerted me through [place] [employer] that he is out of [place]. Consult hematology. discussed consult with immigration judge GI consult (2) Adenocarcinoma, colon: Plan: S/P right hemicolectomy with ileostomy on 05/21/[address] Coy at [facility] (3) Paroxysmal a-fib: Plan: Anticoagulated on Eliquis Current sinus rhythm Hold Eliquis for now Continue metoprolol, Multaq Follows with [facility] [place] cardiology #H/O Tachybrady syndrome H/O elevated heart rates during episodes of atrial fibrillation and h/o recorded low heart rates per cardiology note and discussion about possible need for pacemaker in future. Monitor on telemetry (4) CAD (coronary artery disease): (5) Dyslipidemia: Plan: Denies CP, SOB Hold aspirin for now Continue atorvastatin, metoprolol (6) RLS (restless legs syndrome): Plan: Continue gabapentin DVT Prophylaxis SCDs for now Admit telemetry Full Code as per discussion with pt Follows with Dr Yeager for routine care Pt was seen and care coordinated with Dr Good. See addendum I spent a total of 75 minutes reviewing notes, outpatient records, labs, medication, coordinating, documenting and providing care for this patient excluding time spent in the performance of separately billed services and excluding time spent by another provider/QHP. History of Present Illness Chief Complaint: abnormal labs Primary Care Provider: Sharad Yeager MD Patient is 80-year-old male with PMH anemia, colon cancer S/P right hemicolectomy with ileostomy on 05/21/[address] Coy at [facility] with subsequent ileus,CKD III, paroxysmal atrial fibrillation, CAD, dyslipidemia, RLS, history of prostate cancer presented to ER with c/o abnormal labs - "low hemoglobin". Per chart review patient with [facility] admission 05/21/2025-05/23/2025 laparoscopic converted to right hemicolectomy by Dr. Coy. Also [facility] admission 05/25/2025- 05/28/2025 for ileus. Patient states has been doing well and his prior lower abdominal discomfort from surgery has almost resolved. Denies any worsening abdominal pain. Reports takes iron and his stools are chronically dark in coloration. States stools are soft and formed. Denies hematochezia. He following with [facility] hematology for IV infusion for iron deficiency anemia. Last Venofer on 04/14/25. Was to be receiving weekly x 4 starting on 06/17/25, however did get started yet since his recent procedure in May. Per outpatient chart review: 05/28/25 Hgb: 8.3, 06/11/2025 Hgb: 8.8, 06/24/2025 Hgb: 5.1 and was referred to ER today. States has been feeling fatigued since surgery in May however yesterday felt more fatigued with ambulating. Denies fever/chills, diaphoresis, N/V/D, ANTHONY, dizziness, syncope, vision changes, neck pain, CP, SOB, palpitations, cough, sore throat, rhinorrhea, paresthesias, extremity weakness, extremity edema, rashes, urinary symptoms. Discussed patient with ER provider and patient found to be anemic with Hgb: 5.3 and pt has started PRBC transfusion in ER. Allergies Allergy/AdvReac Type Severity Reaction Status Date / Time No Known Allergies Allergy Verified 04/22/25 10:42 Home Medications Medication Instructions Recorded Confirmed Type atorvastatin 80 mg tablet (Lipitor) 80 mg PO QPM 02/15/19 06/25/25 History nitroglycerin 0.4 mg sublingual 0.4 mg sublingual Q5M PRN Chest 03/29/19 06/25/25 History tablet (Nitrostat) Pain aspirin 81 mg tablet,delayed 81 mg PO DAILY 05/18/20 06/25/25 History release (Aspir-) multivitamin with iron 1 tab PO DAILY 01/18/23 06/25/25 History dronedarone 400 mg tablet (Multaq) 400 mg PO BID #60 tabs 11/08/24 06/25/25 Rx gabapentin 300 mg capsule 300 mg PO HS 04/22/25 06/25/25 History metoprolol succinate 25 mg 25 mg PO DAILY 05/25/25 06/25/25 History tablet,extended release 24 hr apixaban 5 mg tablet (Eliquis) 5 mg PO BID 06/25/25 06/25/25 History Past Med/Surg History Problem List (Updated 06/25/25 @ 14:31 by Irais Dodson PA-C) RLS (restless legs syndrome) Dyslipidemia Acute on chronic anemia Tachy-clara syndrome Sinus bradycardia Anemia Paroxysmal atrial fibrillation with RVR Atypical chest pain BARBA (dyspnea on exertion) Anticoagulant long-term use Mitral regurgitation Hypertension CAD (coronary artery disease) (Chronic) "2012 - RCA STEMI, s/p BMS x 3 and aspiration thrombectomy to RCA" Paroxysmal a-fib (Chronic) Lung nodules (Chronic) Adenocarcinoma, colon (Chronic) Surgical History History of colectomy Hx of appendectomy History of cataract surgery History of arthroscopy of right shoulder H/O prostatectomy History of colonoscopy 05/21/25 hemicolectomy with anastomosis; [facility]; Dr Coy Family History Other Cancer Diabetes Stroke Social History Smoking Status: Never smoker Hx Alcohol Use: No Hx Substance Use: No Preferred Language: Malay Latent Fingerprint Examiner Required: No Beliefs That Will Affect Care: None marital status: Current Living Situation: Spouse Other Information That Helps Us Care for You: No Feels Safe at Home: Yes Safety Concerns: Feels Safe At This Time Assistive Devices: None Review of Systems Review of Systems: All systems reviewed & are unremarkable except as noted in HPI & below Physical Exam Physical Exam: General: no distress, WDWN Head: normocephalic, atraumatic Eyes: pale conjunctiva, conjunctiva non-injected, anicteric ENT: normal inspection external ears, nose, mucous membranes moist Neck: supple, trachea midline Lungs: clear, no respiratory distress, no wheezing/rhonchi/rales CV: RRR, no murmur, no pretibial edema Abd: +healing surgical incision abdomen without surrounding erythema and no discharge, normal BS, soft, non-tender to palpation Ext: no cyanosis, no calf tenderness Neuro: A&O x 3, no focal deficits noted, normal affect Skin: pale, warm, dry Results & Data Results & Data Vital Signs (Past 12 Hours) Vital Signs Temp Pulse Pulse Resp BP BP Pulse Ox 06/25/25 12:51 36.7 C 59 L 18 125/72 99 06/25/25 12:21 36.9 C 58 L 16 111/60 99 06/25/25 12:06 37.0 C 57 L 16 112/59 L 97 06/25/25 11:47 37.1 C 62 16 112/60 100 06/25/25 11:15 62 18 107/80 99 06/25/25 10:14 62 06/25/25 09:48 59 L 16 129/65 99 06/25/25 09:22 36.6 C 95 H 20 142/82 H 93 O2 Del Method O2 Flow Rate 06/25/25 12:51 0 06/25/25 12:21 0 06/25/25 12:06 0 06/25/25 11:47 0 06/25/25 11:15 Room Air 06/25/25 10:14 06/25/25 09:48 Room Air 06/25/25 09:22 Room Air Laboratory Results Short CBC 06/25/25 Range/Units 09:35 WBC 5.83 (4.8-10.8) K/ul Hgb 5.3 L* (14.0-18.0) g/dL Hct 18.7 L* (42.0-52.0) % Plt Count 230 (130-400) K/uL BMP 06/25/25 09:35 Sodium 141 Potassium 3.8 Chloride 107 Carbon Dioxide 24 BUN 19 Creatinine 0.89 Glucose 107 H Calcium 8.8 Liver Function 06/25/25 Range/Units 09:35 Total Bilirubin 0.8 (0.2-1.0) mg/dl AST 11 L (13-39) U/L ALT 16 (7-52) U/L Alkaline Phosphatase 40 (34-104) U/L Albumin 4.0 (3.4-5.0) gm/dl Diagnostic Findings Abdomen/Pelvis CTA 06/25/25 10:34 CT ANGIOGRAM OF THE ABDOMEN AND PELVIS CLINICAL HISTORY: GI bleeding. COMPARISON STUDY: Abdominal CT dated 05/25/2025 and 10/03/2016. TECHNIQUE: Following the IV administration of 120 cc of Optiray 320, CT angiogram of the abdomen and pelvis was performed from the lung bases the proximal femora. Images are reviewed in the axial, sagittal, and coronal planes. 3-D MIPS images are created and assessed. IV contrast was administered without complication. A dose lowering technique was utilized adhering to the principles of ALARA. CT DOSE: 921.32 mGy.cm FINDINGS: Lower chest: The heart is enlarged and without pericardial effusion. The core arteries are densely calcified. There is a tiny hiatal hernia. There is bibasilar scarring/atelectasis. No airspace consolidation or pleural effusion is identified. A 10 mm ovoid nodule in the right middle lobe on image #25 is unchanged dating back to 2017, as are 5 mm and 11 mm right lower lobe nodules seen on images #32 and #69. Liver: The contrast-enhanced liver is normal in size, contour, and attenuation. There is no intrahepatic biliary ductal dilatation. The main portal veins appear patent. Numerous hepatic cysts measuring up to 3.4 cm. Gallbladder: There are numerous layering gallstones with no CT evidence of acute cholecystitis. Spleen: Normal in size and attenuation noting heterogeneous arterial phase enhancement. Pancreas: A 1.6 cm simple cystic lesion arising from the pancreatic tail on image #80 is unchanged and likely represents a sidebranch IPMN versus mucinous cystic neoplasm. The pancreas is otherwise normal as imaged. Adrenal glands: Unremarkable. Kidneys: The contrast enhanced kidneys are normal in size and without hydronephrosis. The kidneys enhance symmetrically. Renal cysts measure up to 4.5 cm. Additional subcentimeter cortical hypodensities also likely represent cysts but are too small for definitive characterization. Abdominal aorta and iliac arteries: There is moderate to advanced atherosclerotic calcification and mild ectasia of the abdominal aorta. No dissection is seen. The iliac arteries are widely patent bilaterally noting atherosclerotic plaque and irregularity. Major branches of the abdominal aorta: The celiac trunk, superior mesenteric, and inferior mesenteric arteries are widely patent. The accessory left hepatic artery arises from the left gastric artery. The splenic artery is patent. There are 2 left renal arteries and a single right renal artery. The renal arteries are patent. Bowel: There is postsurgical change from right hemicolectomy with ileocolic anastomosis. No bowel obstruction is seen. [id number] fecal retention is noted throughout the remaining colon. No tumoral contrast is identified suggesting a site of active GI bleeding. Peritoneum: No intraperitoneal free air as seen. There is a small volume of pelvic ascites. A midline surgical incision is noted. Lymphadenopathy: None. Pelvic viscera: The prostate gland is surgically absent. The bladder is distended, and the wall appears thickened/trabeculated indicating chronic outlet obstruction. There are bilateral fat-containing left groin hernias. Skeletal structures: The skeletal structures are osteopenic. There is moderate lumbosacral spondylosis. No lytic or blastic bony lesions are seen. IMPRESSION: 1. Unremarkable CT angiogram of the abdominal aorta and its major branches noting atherosclerotic plaque and irregularity. 2. There is postsurgical change from right hemicolectomy with ileocolic anastom osis. No intraluminal contrast is identified to suggest a site of active GI bleeding. 3. Small volume pelvic ascites. 4. Cardiomegaly noting coronary artery atherosclerosis. 5. Cholelithiasis. 6. Additional findings as above. ACT 112: Negative or not required by law. Electronically signed by: Andreas Reeves M.D. 06/25/2025 11:59 AM Supervising Physician Co-Signing Physician Notes Attending addendum: The patient was seen and examined in emergency room in presence of the He is status post right hemicolectomy with ileostomy on 05/21/2025 at [facility] for colon cancer Has been complaining of increasing tiredness and fatigue for the last 1 week. Denies any chest pain and/or palpitation No significant abdominal pain and/or distention Noted to have an hemoglobin of less than 6 as an outpatient and was advised to come to the emergency room. Denies any overt blood loss but has black stool and there was positive for blood in the emergency room On examination Lying in bed without any apparent distress but looks pale Hemodynamically stable, afebrile and no tachycardia Chestclear to auscultate bilaterally Abdomenevidence of recent surgery scar and some tenderness but no distention, bowel sound present HeartS1-S2, regular Extremitiesno edema His labs, EKG and imaging studies reviewed Significant findings of low hemoglobin with reticulocyte count 6.29 and stool was positive for blood CT of the abdomen did not show any significant abnormality Assessment and plan Significant anemia likely secondary to GI loss and is complicated by hemolysis and history of colon cancer status post surgery Has been on Eliquis for paroxysmal atrial fibrillation on hold now Stool was positive for blood and will ask for GI evaluation Will ask for hematology input for increase reticulocyte count History of iron deficiency anemia but iron level seems to be elevated so will not give any more intravenous iron Agree with assessment and plan as outlined above by Irais Dodson PA-C and take the full responsibility of care in the hospital Total time taken to review the chart, medications, examining the patient and discussion with the patient about the plan was [address] Lauren Good (4) CAD (coronary artery disease) Associated angina: without angina Coronary Disease-Associated Artery/Lesion type: [place] artery [place] vs. transplanted heart: [place] heart Qualified Code(s): I25.10 - Atherosclerotic heart disease of [place] coronary artery without angina pectoris
[2025-06-25] MEDS ORDERED: POLYETHYLENE (MIRALAX) 17 GM PACK PO PRN (15:34)
[2025-06-25 18:57] LABS: Total Iron Binding Cap Calc 420.0 mcg/dl (250-450); Transferrin (FE) Percent Satur 78.0 % (20-50)
[2025-06-25 19:58] LABS: Hematocrit (blood only) 22.3 % (42.0-52.0); Hemoglobin 6.8 g/dL (14.0-18.0)
[2025-06-25] MEDS: ATORVASTATIN 40 MG TAB PO SCH (20:20)
[2025-06-25] MEDS: DRONEDARONE HCL 400 MG TAB PO SCH (20:21)
[2025-06-25] MEDS: GABAPENTIN 300 MG CAP PO SCH (20:21)
[2025-06-25] MEDS: PANTOprazole 40 MG/10 ML SYR IV SCH (20:39)
[2025-06-25] MEDS: ACETAMINOPHEN 325 MG TAB PO PRN (22:27)
[2025-06-26 07:23] LABS: Hematocrit (blood only) 23.7 % (42.0-52.0); Hemoglobin 7.2 g/dL (14.0-18.0); Immature Granulocytes # (auto) 0.02 K/uL (0.01-0.20); Immature Granulocytes % (auto) 0.4 %; Mean Corpuscular Hemoglobin 26.5 pg (25.0-34.0); Mean Corpuscular Volume 87.1 fL (80.0-100.0); Platelet Count 189 K/uL (130-400); RDW Standard Deviation 51.8 fL (36.4-46.3); Red Blood Count 2.72 M/uL (4.70-6.10); White Blood Count 4.72 K/ul (4.8-10.8)
[2025-06-26 07:54] LABS: Hypochromasia Present; Ovalocytes 1+; Polychromasia 1+; Tear Drop Cells 1+
[2025-06-26 07:55] LABS: Anion Gap 6.0 (3-11); Blood Urea Nitrogen 13.0 mg/dl (6-23); Calcium 8.5 mg/dl (8.6-10.3); Carbon Dioxide 27.0 mmol/L (21-32); Chloride 108.0 mmol/L (98-107); Creatinine Clr Calc Pharmacy 67.3 ml/min; Glucose 85.0 mg/dl (70-99(Fasting)); Potassium 3.9 mmol/L (3.5-5.1); Sodium 141.0 mmol/L (136-145)
--- NOTE | 2025-06-26 07:55 | Oncology Consultation ---
Date of Consultation June 26, 2025 Assessment & Plan (1) Acute on chronic anemia: At this point recommend transfusion to maintain hemoglobin greater than 7 g/dL. GI is on board, appreciate their recommendations. GI workup per my GI colleagues. Apparently the patient was on anticoagulation however no recent active GI bleeding. Continue outpatient IV iron infusions. Colonoscopy and EGD were GI colleagues. Since he is on anticoagulation due to atrial fibrillation, recommendations for anticoagulation should come from our cardiology colleagues. Plan Thank you for this interesting hematological consult. A total of 60 minutes were spent in counseling, coordination of care, review of prior records. History of Present Illness Attending Physician: Sandra Suh MD History of Present Illness The patient is a very pleasant 80-year-old man who has a history of chronic kidney disease, paroxysmal atrial fibrillation, coronary artery disease, dyslipidemia, history of prostate cancer who presented to [facility] with fatigue and tiredness. On admission his hemoglobin was 5.6 g/dL. Hematology has been consulted to assist in management of this patient with acute on chronic anemia. His hemoglobin has stabilized and improved after transfusions. GI has been involved. Apparently he gets IV infusions Allergies Allergy/AdvReac Type Severity Reaction Status Date / Time No Known Allergies Allergy Verified 04/22/25 10:42 Home Medications Medication Instructions Recorded Confirmed Type atorvastatin 80 mg tablet (Lipitor) 80 mg PO QPM 02/15/19 06/25/25 History nitroglycerin 0.4 mg sublingual 0.4 mg sublingual Q5M PRN Chest 03/29/19 06/25/25 History tablet (Nitrostat) Pain aspirin 81 mg tablet,delayed 81 mg PO DAILY 05/18/20 06/25/25 History release (Aspir-) multivitamin with iron 1 tab PO DAILY 01/18/23 06/25/25 History dronedarone 400 mg tablet (Multaq) 400 mg PO BID #60 tabs 11/08/24 06/25/25 Rx gabapentin 300 mg capsule 300 mg PO HS 04/22/25 06/25/25 History metoprolol succinate 25 mg 25 mg PO DAILY 05/25/25 06/25/25 History tablet,extended release 24 hr apixaban 5 mg tablet (Eliquis) 5 mg PO BID 06/25/25 06/25/25 History Patient History Surgical History History of colectomy Hx of appendectomy History of cataract surgery History of arthroscopy of right shoulder H/O prostatectomy History of colonoscopy 05/21/25 hemicolectomy with anastomosis; [facility]; Dr Coy Family History Other Cancer Diabetes Stroke Social History Smoking Status: Never smoker Hx Alcohol Use: No Hx Substance Use: No Preferred Language: Senegalese Communication Ability: Effective Nail Assembly Machine Operator Required: No Beliefs That Will Affect Care: None marital status: Current Living Situation: Spouse Other Information That Helps Us Care for You: No Feels Safe at Home: Yes Safety Concerns: Feels Safe At This Time Assistive Devices: None Review of Systems Review of Systems: All systems reviewed & are unremarkable except as noted in HPI & below Constitutional: as per Subjective / HPI Eyes: as per Subjective / HPI Ear, Nose, Mouth, Throat: as per Subjective / HPI Respiratory: as per Subjective / HPI Cardiovascular: as per Subjective / HPI Gastrointestinal: as per Subjective / HPI Genitourinary: + as per Subjective / HPI Musculoskeletal: as per Subjective / HPI Integumentary: as per Subjective / HPI Neurologic: as per Subjective / HPI Psychiatric: as per Subjective / HPI Endocrine: as per Subjective / HPI Physical Exam Constitutional: WD/WN, vitals as above Eyes: PERRL, conjunctivae normal, anicteric sclerae ENMT: external ear and nose normal, oropharynx normal Neck: trachea midline, no thyromegaly Respiratory: normal respiratory effort, lungs clear to auscultation Cardiovascular: RRR, no murmur, no edema Gastrointestinal (Abdomen): normal bowel sounds, soft, nontender, no hepatosplenomegaly Musculoskeletal: no cyanosis or clubbing, extremities motor strength 5/5 Skin: no rashes, warm and dry Neurologic: patellar DTR's 2+ bilat, sensation intact Psychiatric: A+Ox3, euthymic affect Lymphatic: no cervical or axillary lymphadenopathy Results & Data Vital Signs (Past 12 Hours) Vital Signs Temp Pulse Pulse Resp BP Pulse Ox O2 Del Method 06/26/25 05:34 51 L 06/26/25 02:42 36.6 C 58 L 16 122/60 94 Room Air 06/25/25 22:22 36.7 C 62 18 128/67 96 Room Air 06/25/25 22:05 60
[2025-06-26] MEDS: METOPROLOL SUCC 25MG EXT REL TAB PO SCH (08:25)
--- NOTE | 2025-06-26 09:26 | Hospitalist Progress Note ---
Date of Service June 26, 2025 Assessment & Plan (1) Acute on chronic anemia: Plan: 80-year-old male with PMH anemia, colon cancer S/P right hemicolectomy with ileostomy on 05/21/[address] Coy at [facility] with subsequent ileus, CKD III, paroxysmal atrial fibrillation, CAD, dyslipidemia, RLS, history of prostate cancer presented to ER with for abnormal labs/low Hb. Reports worsening Fatigue that worsened in the past few days Previous diagnosis of iron deficiency anemia Last Venofer on 04/14/25. Per outpatient chart review: 05/28/25 Hgb: 8.3, 06/11/2025 Hgb: 8.8, 06/24/2025 Hgb: 5.1 In ER vitals stable. H/H: 5.3/, retic%: 6.2, retic #: 0.13. +heme positive stool test in ER CT Abd/pelvis: 1. Unremarkable CT angiogram of the abdominal aorta and its major branches noting atherosclerotic plaque and irregularity. 2. There is postsurgical change from right hemicolectomy with ileocolic anastomosis. No intraluminal contrast is identified to suggest a site of active GI bleeding. 3. Small volume pelvic ascites. 4. Cardiomegaly noting coronary artery atherosclerosis. 5. Cholelithiasis. LDH was normal 166. Haptoglobin pending S/p 2 PRBC. Hb improved to 7.2 this AM Will continue to monitor Considering recent hemicolectomy, will await GI eval Follows with [facility] hematology. Will follow up Heme recs (2) Adenocarcinoma, colon: Plan: S/P right hemicolectomy with ileostomy on 05/21/[address] Coy at [facility] (3) Paroxysmal a-fib: Plan: Anticoagulated on Eliquis Current sinus rhythm Hold Eliquis for now Continue metoprolol, Dronedarone Follows with [facility] cardiology #H/O Tachybrady syndrome H/O elevated heart rates during episodes of atrial fibrillation and h/o recorded low heart rates per cardiology note and discussion about possible need for pacemaker in future. Monitor on telemetry (4) CAD (coronary artery disease): (5) Dyslipidemia: Plan: Denies CP, SOB ASA on hold for now Continue atorvastatin, metoprolol (6) RLS (restless legs syndrome): Plan: Continue gabapentin DVT Prophylaxis- SCDs for now Code status : Full code I spent a total of 50 minutes coordinating, documenting and providing care for this patient excluding time spent in performance of separately billed services Admission and Anticipated Discharge Date Admission Date: June 25, 2025 Subjective Patient seen and examined Reports fatigue is improved with recent blood transfusion Got 2 PRBC overnight Report intermittent minimal pain around abd surgical site which has been improving overtime Reports stools are usually dark due to iron tabs. No bloody BM reported Denied any other complaints on ROS Physical Exam Constitutional: + well hydrated; no acute distress Eyes: PERRL EOMI Respiratory: normal respiratory effort, lungs clear to auscultation Cardiovascular: Rate/Rhythm: + bradycardic S1 S2 Gastrointestinal (Abdomen): normal bowel sounds, soft, nontender, no hepatosplenomegaly Surgical scar healing well Musculoskeletal: No pedal edema Neurologic: PERRL, EOMI, accommodation nl, no face palsy, no dysarthria Psychiatric: A+Ox3, euthymic affect Results & Data Results & Data Vital Signs (Past 12 Hours) Vital Signs Temp Pulse Pulse Resp BP Pulse Ox O2 Del Method 06/26/25 08:36 36.5 C 52 L 16 108/56 L 94 Room Air 06/26/25 08:30 36.5 C 47 L 20 131/71 97 Room Air 06/26/25 05:34 51 L 06/26/25 02:42 36.6 C 58 L 16 122/60 94 Room Air 06/25/25 22:22 36.7 C 62 18 128/67 96 Room Air 06/25/25 22:05 60 Laboratory Results Abnormal lab results 06/25/25 06/25/25 06/25/25 Range/Units 09:35 09:40 19:21 WBC (4.8-10.8) K/ul RBC (4.70-6.10) M/uL Hgb 6.8 L* (14.0-18.0) g/dL Hct 22.3 L (42.0-52.0) % MCHC (32.0-36.0) g/dL RDW Std Deviation (36.4-46.3) fL RDW Coeff of Melba (11.5-14.5) % Lymph # (Auto) (1.20-3.40) K/uL Chloride (98-107) mmol/L Calcium (8.6-10.3) mg/dl Iron 328 H (35-175) mcg/dl Transferrin % Sat 78 H (20-50) % Crossmatch See Detail 06/26/25 Range/Units 06:31 WBC 4.72 L (4.8-10.8) K/ul RBC 2.72 L (4.70-6.10) M/uL Hgb 7.2 L (14.0-18.0) g/dL Hct 23.7 L (42.0-52.0) % MCHC 30.4 L (32.0-36.0) g/dL RDW Std Deviation 51.8 H (36.4-46.3) fL RDW Coeff of Melba 17.1 H (11.5-14.5) % Lymph # (Auto) 1.13 L (1.20-3.40) K/uL Chloride 108 H (98-107) mmol/L Calcium 8.5 L (8.6-10.3) mg/dl Iron (35-175) mcg/dl Transferrin % Sat (20-50) % Crossmatch (4) CAD (coronary artery disease) Associated angina: without angina Coronary Disease-Associated Artery/Lesion type: [place] artery [place] vs. transplanted heart: [place] heart Qualified Code(s): I25.10 - Atherosclerotic heart disease of [place] coronary artery without angina pectoris
--- NOTE | 2025-06-26 11:04 | Gastrointestinal Consultation ---
Date of Consultation June 26, 2025 Assessment & Plan (1) Acute on chronic anemia: Plan Patient admitted with acute on chronic anemia. He reports anemia for the past 5 years that he attributes to starting eliquis. He does note darker stools but this has been his baseline since taking oral iron. He notes a negative colonoscopy, EGD, and capsule endoscopy in the past for the anemia in 2021. - continue to follow hgb/hct. transfuse as needed. - in the setting of recent eliquis, recent colonic surgery, and seemingly no active GI bleeding on imaging at this time, will monitor for now. - Further recommendations to come with Supervising GI provider on medical rounds. Please see co-signature comments. Supervising Physician Co-Signing Physician Notes Acute on chronic gastrointestinal bleeding. History of right hemicolectomy. Patient has required oral and IV iron for maintenance of iron stores and hemoglobin levels. He states problems began around the time of introduction of Eliquis. AVMs are the most probable diagnosis. We reviewed this in detail today. His last procedures were released a year or so ago. There has been evidence of increasing difficulty maintaining his hemoglobin increased frequency of episodes and need for iron transfusions. Discussed that we could consider restarting his upper GI tract looking for AVMs within the reach of the upper endoscope. Patient requires about stopping Eliquis. We discussed potential stroke risks. He is to reach to his disk recoater prior to entertaining stopping this drug. Alternative for ongoing Eliquis use potential ablation of Watchman procedures. He has been in discussions with his disk recoater in that regard. EGD with pediatric colonoscope tomorrow. History of Present Illness Reason for Consultation: acute on chronic anemia s/p hemicolectomy Requesting Physician: Irais Dodson PAC Attending Physician: Sandra Suh MD History of Present Illness Patient is a 80 year old male with a past medical history of anemia, colon cancer status post right hemicolectomy on 05/21/[address] Coy at [facility] [place] with subsequent ileus, CKD III, paroxysmal atrial fibrillation, CAD, dyslipidemia, RLS, history of prostate cancer presented to ER with complaints of abnormal labs with a low hemoglobin. Patient tells me that he has been anemic since he was started on eliquis for a fib around 5 years ago and has been following with hematology and has received iron infusions in the past. he tells me his last dose of eliquis was 06/24 in the evening. He notes that he has dark stools chronically due to oral iron - he notes a darker brown. He does not feel stools have been outside of the normal. He notes he has not moved his bowels in 2 days. no brbpr. He reports that back in 2021, he had EGD, colonoscopy, and capsule endoscopy with [facility] for anemia that was unremarkable. The remainder of the GI ROS were unremarkable. 06/26/25 wbc 4.72, hgb 7.2, hct 23.7, plts 189, Na 141, K 3.9, BUN 13, Cr 0.89. 06/25/25 CTA - 1. Unremarkable CT angiogram of the abdominal aorta and its major branches noting atherosclerotic plaque and irregularity. 2. There is postsurgical change from right hemicolectomy with ileocolic anastomosis. No intraluminal contrast is identified to suggest a site of active GI bleeding. 3. Small volume pelvic ascites. 4. Cardiomegaly noting coronary artery atherosclerosis. 5. Cholelithiasis. Allergies Allergy/AdvReac Type Severity Reaction Status Date / Time No Known Allergies Allergy Verified 04/22/25 10:42 Home Medications Medication Instructions Recorded Confirmed Type atorvastatin 80 mg tablet (Lipitor) 80 mg PO QPM 02/15/19 06/25/25 History nitroglycerin 0.4 mg sublingual 0.4 mg sublingual Q5M PRN Chest 03/29/19 06/25/25 History tablet (Nitrostat) Pain aspirin 81 mg tablet,delayed 81 mg PO DAILY 05/18/20 06/25/25 History release (Aspir-) multivitamin with iron 1 tab PO DAILY 01/18/23 06/25/25 History dronedarone 400 mg tablet (Multaq) 400 mg PO BID #60 tabs 11/08/24 06/25/25 Rx gabapentin 300 mg capsule 300 mg PO HS 04/22/25 06/25/25 History metoprolol succinate 25 mg 25 mg PO DAILY 05/25/25 06/25/25 History tablet,extended release 24 hr apixaban 5 mg tablet (Eliquis) 5 mg PO BID 06/25/25 06/25/25 History Patient History Surgical History History of colectomy Hx of appendectomy History of cataract surgery History of arthroscopy of right shoulder H/O prostatectomy History of colonoscopy 05/21/25 hemicolectomy with anastomosis; [facility] [place]; Dr Coy Family History Other Cancer Diabetes Stroke Social History Smoking Status: Never smoker Hx Alcohol Use: No Hx Substance Use: No Preferred Language: Pakistani Communication Ability: Effective Woodworker Required: No Beliefs That Will Affect Care: None marital status: Current Living Situation: Spouse Other Information That Helps Us Care for You: No Feels Safe at Home: Yes Safety Concerns: Feels Safe At This Time Assistive Devices: None Review of Systems Review of Systems: All systems reviewed & are unremarkable except as noted in HPI & below Physical Exam Constitutional: WD/WN, vitals as above Respiratory: normal respiratory effort, lungs clear to auscultation Cardiovascular: Rate/Rhythm: regular rate and regular rhythm Gastrointestinal (Abdomen): normal bowel sounds, soft, nontender, no hepatosplenomegaly midline surgical scar. Psychiatric: Orientation: alert and oriented x 3 Affect: euthymic affect Results & Data Vital Signs (Past 12 Hours) Vital Signs Temp Pulse Pulse Resp BP Pulse Ox O2 Del Method 06/26/25 08:36 97.7 F 52 L 16 108/56 L 94 Room Air 06/26/25 08:30 97.7 F 47 L 20 131/71 97 Room Air 06/26/25 08:00 Room Air 06/26/25 05:34 51 L 06/26/25 02:42 97.9 F 58 L 16 122/60 94 Room Air Coding Level of Care Code 77400 INT INP/OBS CARE 2/55MIN Diagnoses Acute on chronic anemia D64.9
[2025-06-26 14:46] LABS: Hematocrit (blood only) 24.2 % (42.0-52.0); Hemoglobin 7.3 g/dL (14.0-18.0)
[2025-06-26] MEDS: GABAPENTIN 300 MG CAP PO SCH (14:48)
--- NOTE | 2025-06-26 22:06 | Electrocardiogram Report ---
Test Reason : Blood Pressure : */* mmHG Vent. Rate : 59 BPM Atrial Rate : 59 BPM P-R Int : 180 ms QRS Dur : 120 ms QT Int : 470 ms P-R-T Axes : 74 -44 34 degrees QTcB Int : 465 ms Sinus bradycardia with Premature supraventricular complexes Left axis deviation Low voltage QRS Right bundle branch block Abnormal ECG When compared with ECG of 16-Jan-2025 08:48, Premature ventricular complexes are no longer Present Premature supraventricular complexes are now Present Criteria for Inferior infarct are no longer Present Confirmed by Shlomo Pearson ([id number]) on 06/26/2025 10:06:35 PM Referred By: Mana Rizzo Confirmed By: Shlomo Pearson
[2025-06-27] MEDS: METOPROLOL TARTRATE 1 MG/ML VIAL IV STA (02:09)
[2025-06-27] MEDS: SODIUM CHLORIDE 0.9% 250 ML IV ONE (02:22)
[2025-06-27] MEDS: SODIUM CHLORIDE 0.9% 1,000 ML IV SCH (02:38)
[2025-06-27 03:47] LABS: Hematocrit (blood only) 23.5 % (42.0-52.0); Hemoglobin 7.3 g/dL (14.0-18.0)
[2025-06-27 03:47] LABS: Hematocrit (blood only) 24.4 % (42.0-52.0); Hemoglobin 7.5 g/dL (14.0-18.0); Mean Corpuscular Hemoglobin 26.6 pg (25.0-34.0); Mean Corpuscular Volume 86.5 fL (80.0-100.0); Platelet Count 176 K/uL (130-400); RDW Standard Deviation 50.4 fL (36.4-46.3); Red Blood Count 2.82 M/uL (4.70-6.10); White Blood Count 4.10 K/ul (4.8-10.8)
[2025-06-27 04:03] LABS: Anion Gap 7.0 (3-11); Blood Urea Nitrogen 12.0 mg/dl (6-23); Calcium 8.1 mg/dl (8.6-10.3); Carbon Dioxide 24.0 mmol/L (21-32); Chloride 108.0 mmol/L (98-107); Creatinine Clr Calc Pharmacy 66.6 ml/min; Glucose 86.0 mg/dl (70-99(Fasting)); Potassium 3.8 mmol/L (3.5-5.1); Sodium 139.0 mmol/L (136-145)
--- NOTE | 2025-06-27 07:53 | Anesthesiology Consultation ---
Date of Service June 27, 2025 Assessment & Plan Chart Review Chart Review: Acceptable Risk for Surgery, Patient NOT seen in Pre Admission Testing and data entry supervisor initiated Consults Requested none History Surgery Operation Date: 06/27/25 16:30 Proposed Procedures p Esophagogastroduodenoscopy Dr. Bill Khan MD Height/Weight Height: 5 ft 9 in Weight: 72.6 kg Allergies Allergy/AdvReac Type Severity Reaction Status Date / Time No Known Allergies Allergy Verified 04/22/25 10:42 Medications Home Medications Medication Instructions Recorded Confirmed Last Taken atorvastatin 80 mg tablet (Lipitor) 80 mg PO QPM 02/15/19 06/25/25 06/24/25 nitroglycerin 0.4 mg sublingual 0.4 mg sublingual Q5M PRN Chest 03/29/19 06/25/25 Unknown tablet (Nitrostat) Pain aspirin 81 mg tablet,delayed 81 mg PO DAILY 05/18/20 06/25/25 06/25/25 release (Aspir-) multivitamin with iron 1 tab PO DAILY 01/18/23 06/25/25 Unknown dronedarone 400 mg tablet (Multaq) 400 mg PO BID #60 tabs 11/08/24 06/25/25 06/25/25 gabapentin 300 mg capsule 300 mg PO HS 04/22/25 06/25/25 Unknown metoprolol succinate 25 mg 25 mg PO DAILY 05/25/25 06/25/25 Unknown tablet,extended release 24 hr apixaban 5 mg tablet (Eliquis) 5 mg PO BID 06/25/25 06/25/25 06/24/25 Active Medications Generic Name Dose Route Start Last Admin Trade Name Freq PRN Reason Stop Dose Admin Acetaminophen 650 mg 06/25/25 15:34 06/25/25 22:27 Acetaminophen 325 Mg Tab PO 07/25/25 15:33 650 mg Q4H PRN Administration Pain or Fever Atorvastatin Calcium 80 mg 06/25/25 21:00 06/26/25 20:44 Atorvastatin 40 Mg Tab PO 07/25/25 20:59 80 mg QPM NORIS Administration Dronedarone 400 mg 06/25/25 21:00 06/26/25 20:45 Dronedarone Hcl 400 Mg Tab PO 07/25/25 20:59 400 mg BID NORIS Administration Gabapentin 300 mg 06/26/25 13:57 06/26/25 20:44 Gabapentin 300 Mg Cap PO 07/26/25 13:56 300 mg BID NORIS Administration Pantoprazole Sodium 40 mg in 10 mls @ 5 mls/min 06/25/25 21:00 06/26/25 20:44 Protonix IV 07/25/25 20:59 5 mls/min BID NORIS Administration Sodium Chloride 1,000 mls @ 80 mls/hr 06/27/25 02:15 06/27/25 02:38 Nss IV 06/27/25 14:44 80 mls/hr .[id number] NORIS Administration Past Family History Family History Other Cancer Diabetes Stroke Past Surgical History Surgical History History of colectomy Hx of appendectomy History of cataract surgery History of arthroscopy of right shoulder H/O prostatectomy History of colonoscopy 05/21/25 [place]ico[place]omy with [place] [facility] [place] Social History Smoking Status: Never smoker Hx Alcohol Use: No Hx Substance Use: No Physical Exam Vital Signs Last Vital Signs Temp 36.8 C 06/27/25 03:38 Pulse 96 H 06/27/25 05:33 Resp 16 06/27/25 03:38 BP 113/75 06/27/25 03:38 Pulse Ox 94 06/27/25 03:38 O2 Del Method Room Air 06/27/25 03:38 O2 Flow Rate 0 06/25/25 14:11 Testing Laboratory Results 06/27/25 03:25 06/27/25 03:08 Blood Type A Positive 06/25/25 09:40 Antibody Screen NEGATIVE 06/25/25 09:40 Electrocardiogram Date: 06/25/25 Sinus bradycardia with Premature supraventricular complexes Left axis deviation Low voltage QRS Right bundle branch block Abnormal ECG When compared with ECG of 16-Jan-2025 08:48, Premature ventricular complexes are no longer Present Premature supraventricular complexes are now Present Criteria for Inferior infarct are no longer Present Confirmed by Shlomo Pearson ([id number]) on 06/26/2025 10:06:35 PM Echocardiogram Date: 12/04/24 EF: 70 LV Function: normal RWMA: + none Valvular Disease: + no significant valvular disease
[2025-06-27] MEDS: METOPROLOL SUCC 25MG EXT REL TAB PO SCH (08:34)
[2025-06-27] MEDS ORDERED: METOPROLOL SUCC 25MG EXT REL TAB PO SCH (09:00)
--- NOTE | 2025-06-27 09:19 | Cardiology Consultation ---
Date of Consultation June 27, 2025 Assessment & Plan (1) Paroxysmal atrial fibrillation with RVR: (2) Sinus bradycardia: (3) Tachy-clara syndrome: (4) CAD (coronary artery disease): (5) Acute on chronic anemia: (6) Hypertension: (7) Dyslipidemia: Plan ASSESSMENT/PLAN: 1. Paroxysmal atrial fibrillation: Known and chronic issue with increased frequency over time. Currently in atrial fibrillation but will likely convert on his chronic dronedarone dosing. Recommend heparin drip if no contraindication so that if he remains in atrial fibrillation for greater than 48 hours, would leave open the option for cardioversion as maintaining dronedarone with persistent atrial fibrillation is not recommended. He has been seen by electrophysiology with consideration for changing antiarrhythmic therapy, possible pacemaker at some point for tachybradycardia syndrome, and ablation. He would like to be referred for ablation in the outpatient setting. [place] place [place] [facility] [place] request (to be done in the outpatient setting). For stroke risk reduction, if safe, resume anticoagulation therapy as noted. Given recurrent issues with anemia, consider Watchman device. He has declined watchman referral in the past. This can also be discussed when he is seen at [facility]. 2. CAD s/p RCA STEMI and PCI: He received 3 bare metal stents to the RCA during his STEMI in 2011. Has residual mid LAD moderate CAD. Continue aspirin 81 mg daily given prior PCI unless absolutely contraindicated. Continue high intensity statin therapy. Beta-dina discontinued in the past due to bradycardia. ROBYN inhibitor discontinued in the past due to hypotension. No angina. 3. Hypertension: Blood pressure mostly normotensive. Due to hypotension in the past, lisinopril had been discontinued. 4. Anemia: Has undergone multiple diagnostic imaging modalities to evaluate for cause of anemia. Has been receiving intravenous iron and underwent PRBC x 2 during this admission. Pending for endoscopy today. Defer to primary hospitalist, GI, hematology. 5. Mitral regurgitation: Mild. Monitoring in the outpatient setting with echo in 3 to 5 years from most recent on 12/04/2024. 6. Tachybradycardia syndrome: Has been evaluated by EP (Dr. Ierne) on 04/22/2025. No urgent indication for pacemaker but EP felt that he may need a pacemaker in the future for tachybradycardia syndrome. 7. Disposition: I will be away from the hospital after 5 PM tonight. Please call on-call hat cone inspector with any further questions or concerns. If he remains hospitalized throughout the weekend and in atrial fibrillation throughout, please call Dr. Irene to evaluate from an EP standpoint to help reestablish sinus. Patient care communicated with primary hospitalist, Dr. Suh. Thank you for allowing me to participate in the care of your patient. Please call for any other questions or concerns. Sincerely, Sergio Pearson M.D. History of Present Illness Reason for Consultation: " Afib w/RVR. Anemia. 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 Bahena is a pleasant 80-year-old gentleman with a history significant for CAD status post RCA STEMI and PCI, paroxysmal atrial fibrillation, dyslipidemia, hypertension, anemia, right hemicolectomy with ileostomy (05/21/2025), CKD, and prostate cancer. On 11/20/2011, he presented with RCA STEMI. Angina consisted of back pain, diaphoresis, nausea, left arm pain, and jaw discomfort. He was defibrillated x2 upon arrival to the ER with cardiac arrest. He improved after bare metal stent x3 and aspiration thrombectomy to the RCA. He had residual LAD stenosis. He presented on 10/27/2012 with paroxysmal atrial fibrillation with rapid ventricular response. He spontaneously converted. He has had atrial fibrillation intermittently since then. His last hospitalization for atrial fibrillation was August 2015. He was placed on Multaq on 12/31/2015. He has refused anticoagulation for stroke risk reduction until consideration of Eliquis on 05/18/2020. In June 2023, he had increased frequency of atrial fibrillation. He underwent intravenous iron infusion and had a GI workup which was reportedly unremarkable. Per records, he underwent colonoscopy, EGD, video capsule endoscopy. He also underwent CT imaging of the abdomen and pelvis and celiac disease testing which was reported as unremarkable. Atrial fibrillation recurred in approximately April 2024. He had repeat episode in July 2024, August 2024, 2 episodes in September 2024, 2 episodes in October and again 1 episode in November but was not taking Multaq bid (only qday). He has continued to have increased frequency of atrial fibrillation and was seen by electrophysiology, Dr. Irene, on 04/22/2025 who discussed altering antiarrhythmic therapy versus ablation. Given history of SC and bradycardia, additional therapies are limited. He also discussed Watchman device. He has had the following studies/procedures: 1. Cardiac catheterization 11/20/2011: Proximal LAD 40%. Mid LAD 60-70%. Dominant RCA. Proximal RCA 40% followed by ulcerated plaque 70%. Mid RCA ulcerated 50% followed by 100% with thrombus. EF 50% aspiration thrombectomy of RCA. 3.5 x 15, 3.5 x 20, and 3 x 22 mm Integrity BMS throughout mid to distal RCA. Stents were overlapping. 2. Stress echo 12/08/2014: Negative stress echo at 96% MPHR. Negative ECG. 9 minutes Devan protocol. EF 60%. Normal wall motion. 3. Carotid duplex 12/19/2014: Less than 50% stenosis bilateral ICA. 4. Echo 09/06/2015: Normal LV size and systolic function. Normal wall motion. EF 60%. Mild MR. Atrial fibrillation. 5. Holter 07/19/2016: Sinus bradycardia. Average heart rate 55 ranging 42-120. Occasional PACs. Isolated 23 beat run of SVT. No symptoms. 6. Echo 11/16/2020: Normal LV size, wall motion, systolic function. EF 60-65%. No LVH. Mild MR. RVSP normal. 7. Echo 12/04/2024 [facility]: Normal LV size. EF > 70%. Normal wall motion. No LVH. Mild MR. RVSP 44. He is here today for routine cardiology appointment. He states that he had an episode of atrial fibrillation a little more than a week ago. He woke up at 5 AM feeling anxious and tired. His heart rate shot up into the 120s to 140s. The episode lasted approximately 31 hours before spontaneously ending where his heart rate returned to the 40s to 50s. This is the only episode that he is aware of since 11/08/2024 visit. He believes that the Multaq twice daily has been effective in reducing frequency of atrial fibrillation. He was admitted on 06/25/2025 due to profound anemia. He underwent right [place]icolectomy in May 2025 [place] [facility] He has had extensive workup previously for anemia including colonoscopy, EGD, and video capsule endoscopy. He continues to follow with hematology and undergoes intravenous iron transfusions. He states that he was scheduled undergo iron transfusion on the day of presentation but it was noted that his hemoglobin had dropped down to 5.3 on 06/25/2025 and thus he was referred for admission. He has since received 2 units of packed red blood cells and his hemoglobin has improved to the low to mid 7 range. With the worsened anemia, he had increased fatigue and occasional shortness of breath. He denies chest pain, syncope, melena, hematochezia, hematuria. He has had dark stool in general while being on iron. He continues to have atrial fibrillation episodes, estimating that since more significant anemia having episodes once a week or more. Previously he was having an episode once every 5 to 6 weeks. He is symptomatic with his atrial fibrillation and he also documents it with his smart watch. Typically episodes last anywhere from 4 to 24 hours before resolving. When he presented here, he was in sinus rhythm but developed atrial fibrillation on 06/27/2025 at 1:31 AM. He has remained in atrial fibrillation when he was seen very early this afternoon. Endoscopy was pending. Review of systems: As above. Family history: Brother had SC in his late 60s. Social history: Denies tobacco. No significant alcohol. No drugs. 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 He is and has 1 daughter. He lives at home with his . His was present at the bedside. Allergies Allergy/AdvReac Type Severity Reaction Status Date / Time No Known Allergies Allergy Verified 04/22/25 10:42 Home Medications Medication Instructions Recorded Confirmed Type atorvastatin 80 mg tablet (Lipitor) 80 mg PO QPM 02/15/19 06/25/25 History nitroglycerin 0.4 mg sublingual 0.4 mg sublingual Q5M PRN Chest 03/29/19 06/25/25 History tablet (Nitrostat) Pain aspirin 81 mg tablet,delayed 81 mg PO DAILY 05/18/20 06/25/25 History release (Aspir-) multivitamin with iron 1 tab PO DAILY 01/18/23 06/25/25 History dronedarone 400 mg tablet (Multaq) 400 mg PO BID #60 tabs 11/08/24 06/25/25 Rx gabapentin 300 mg capsule 300 mg PO HS 04/22/25 06/25/25 History apixaban 5 mg tablet (Eliquis) 5 mg PO BID 06/25/25 06/25/25 History Problem List RLS (restless legs syndrome) Dyslipidemia Acute on chronic anemia Tachy-clara syndrome Sinus bradycardia Anemia Paroxysmal atrial fibrillation with RVR Atypical chest pain BARBA (dyspnea on exertion) Anticoagulant long-term use Mitral regurgitation Hypertension CAD (coronary artery disease) (Chronic) "2012 - RCA STEMI, s/p BMS x 3 and aspiration thrombectomy to RCA" Paroxysmal a-fib (Chronic) Lung nodules (Chronic) Adenocarcinoma, colon (Chronic) Patient History Surgical History History of colectomy Hx of appendectomy History of cataract surgery History of arthroscopy of right shoulder H/O prostatectomy History of colonoscopy 05/21/25 hemicolectomy with anastomosis[place] [facility] Coy Family History Other Cancer Diabetes Stroke Social History Smoking Status: Never smoker Hx Alcohol Use: No Hx Substance Use: No Preferred Language: Serbian Communication Ability: Effective Shank Faker Required: No Beliefs That Will Affect Care: None marital status: Current Living Situation: Spouse Other Information That Helps Us Care for You: No Feels Safe at Home: Yes Safety Concerns: Feels Safe At This Time Assistive Devices: None Physical Exam Physical Exam: Gen.: No acute distress. Alert and oriented. HEENT: Anicteric sclera. Neck: No JVD. Cardiac: Irregularly irregular and mildly tachycardic. Normal S1-S2. No murmur. No rubs or gallops. Pulmonary: Clear to auscultation bilaterally without wheezes, rales, or rhonchi. Abdomen: Soft, nontender, nondistended, with normoactive bowel sounds. No bruits noted. Extremities: 2+ radial pulses bilaterally. 2+ posterior tibialis pulses bilaterally. No pitting edema. No cyanosis. Results & Data Vital Signs (Past 12 Hours) Vital Signs Temp Pulse Pulse Resp BP BP Pulse Ox 06/27/25 08:06 36.7 C 117 H 16 114/70 96 06/27/25 05:33 96 H 06/27/25 03:38 36.8 C 110 H 16 113/75 94 06/27/25 02:25 102 H 98/64 L 06/27/25 02:09 121 H 115/66 06/27/25 02:08 121 H 115/66 92 06/27/25 01:31 131 H 06/26/25 23:19 36.8 C 59 L 18 123/65 93 06/26/25 21:38 56 L O2 Del Method 06/27/25 08:06 Room Air 06/27/25 05:33 06/27/25 03:38 Room Air 06/27/25 02:25 06/27/25 02:09 06/27/25 02:08 Room Air 06/27/25 01:31 06/26/25 23:19 Room Air 06/26/25 21:38 Laboratory Results Laboratory Results - last 24 hr 06/26/25 06/27/25 06/27/25 14:29 03:08 03:25 WBC 4.10 L RBC 2.82 L Hgb 7.3 L 7.5 L 7.3 L Hct 24.2 L 24.4 L 23.5 L MCV 86.5 MCH 26.6 MCHC 30.7 L RDW Std Deviation 50.4 H RDW Coeff of Melba 16.8 H Plt Count 176 MPV 10.4 Sodium 139 Potassium 3.8 Chloride 108 H Carbon Dioxide 24 Anion Gap 7 BUN 12 Creatinine 0.90 Est Cr Clr Drug Dosing 66.6 eGFR 86.88 BUN/Creatinine Ratio 13.3 Glucose 86 Calcium 8.1 L Diagnostic Findings Labs reviewed and notable for normal renal function, normal potassium, nonelevated transaminase levels, anemia (hemoglobin 5.3 on 06/25/2025 and 7.3 today). GI note reviewed from 06/26/2025. History and physical report reviewed. ECG personally reviewed 06/25/2025: Sinus bradycardia with premature supraventricular ectopic complexes. [address] abdomen/pelvis 06/25/2025: Unremarkable CTA of abdominal aorta and major branches noting atherosclerotic plaque and irregularity. Postsurgical change from right hemicolectomy and ileocolic anastomosis. Telemetry personally reviewed: Initially sinus rhythm, however developed atrial fibrillation on 06/27/2025 at 1:31 AM. A-fib has been with mild rapid ventricular response. Medications Administered Current Inpatient Medications Acetaminophen (Acetaminophen 325 Mg Tab) 650 mg PO Q4H PRN PRN Reason: Pain or Fever Stop: 07/25/25 15:33 Last Admin: 06/25/25 22:27 Dose: 650 mg Atorvastatin Calcium (Atorvastatin 40 Mg Tab) 80 mg PO QPM [facility] Stop: 07/25/25 20:59 Last Admin: 06/26/25 20:44 Dose: 80 mg Dronedarone (Dronedarone Hcl 400 Mg Tab) 400 mg PO BID [facility] Stop: 07/25/25 20:59 Last Admin: 06/27/25 08:34 Dose: 400 mg Gabapentin (Gabapentin 300 Mg Cap) 300 mg PO BID [facility] Stop: 07/26/25 13:56 Last Admin: 06/27/25 09:10 Dose: 300 mg Pantoprazole Sodium (Protonix) 40 mg in 10 mls @ 5 mls/min IV BID [facility] Stop: 07/25/25 20:59 Last Admin: 06/27/25 08:34 Dose: 5 mls/min Sodium Chloride (Nss) 1,000 mls @ 80 mls/hr IV .[id number] [facility] Stop: 06/27/25 14:44 Last Admin: 06/27/25 02:38 Dose: 80 mls/hr Metoprolol Succinate (Metoprolol Succ 25mg Ext Rel Tab) 25 mg PO DAILY [facility] Stop: 07/27/25 08:59 Last Admin: 06/27/25 08:34 Dose: 25 mg Polyethylene Glycol (Polyethylene (Miralax) 17 Gm Pack) 17 gm PO DAILY PRN PRN Reason: Constipation Stop: 07/25/25 15:33 PG Care Time/CCT Total # of Minutes Spent Total Time Spent with Patient: Total time spent is greater than 50% in coordination of care (as documented) at patient's floor/unit and/or counseling patient: Coding Level of Care Code 43669 INT INP/OBS CARE 3/75MIN Diagnoses Paroxysmal atrial fibrillation with RVR I48.0 Sinus bradycardia R00.1 Tachy-clara syndrome I49.5 Coronary artery disease involving [place] coronary artery of [place] heart without angina pectoris I25.10 Coronary Disease-Associated Artery/Lesion type: [place] artery [place] vs. transplanted heart: [place] heart Associated angina: without angina Acute on chronic anemia D64.9 Primary hypertension I10 Hypertension type: primary hypertension Dyslipidemia E78.5 (4) CAD (coronary artery disease) Coronary Disease-Associated Artery/Lesion type: [place] artery [place] vs. transplanted heart: [place] heart Associated angina: without angina Qualified Code(s): I25.10 - Atherosclerotic heart disease of [place] coronary artery wit hout angina pectoris (6) Hypertension Hypertension type: primary hypertension Qualified Code(s): I10 - Essential (primary) hypertension
--- NOTE | 2025-06-27 09:52 | Hospitalist Progress Note ---
Date of Service June 27, 2025 Assessment & Plan (1) Acute on chronic anemia: Plan: 80-year-old male with PMH anemia, colon cancer S/P right hemicolectomy with ileostomy on 05/21/[address] Coy [place] [facility] with subsequent ileus, CKD III, paroxysmal atrial fibrillation, CAD, dyslipidemia, RLS, history of prostate cancer presented to ER with for abnormal labs/low Hb. Reports worsening Fatigue that worsened in the past few days Previous diagnosis of iron deficiency anemia Last Venofer on 04/14/25. Per outpatient chart review: 05/28/25 Hgb: 8.3, 06/11/2025 Hgb: 8.8, 06/24/2025 Hgb: 5.1 In ER vitals stable. H/H: 5.3/, retic%: 6.2, retic #: 0.13. +heme positive stool test in ER CT Abd/pelvis: 1. Unremarkable CT angiogram of the abdominal aorta and its major branches noting atherosclerotic plaque and irregularity. 2. There is postsurgical change from right hemicolectomy with ileocolic anastomosis. No intraluminal contrast is identified to suggest a site of active GI bleeding. 3. Small volume pelvic ascites. 4. Cardiomegaly noting coronary artery atherosclerosis. 5. Cholelithiasis. LDH was normal 166. Haptoglobin pending S/p 2 PRBC. Hb remains stable at 7s Planned for EGD by GI today (2) Adenocarcinoma, colon: Plan: S/P right hemicolectomy with ileostomy on 05/21/[address] Coy [place] [facility] (3) Paroxysmal a-fib: Plan: Anticoagulated on Eliquis Flipped into Afib overnight Got metoprolol this AM Cardiology consulted. Noted patient usually converts within 24hr. If he doesn't convert by mon, will get Dr Irene to see him. Continue dronedarone inpatient and if still in Afib, do not discharge on dronedarone If EGD is unremarkable and Hb remains stable, will resume Eliquis and monitor #H/O Tachybrady syndrome H/O elevated heart rates during episodes of atrial fibrillation and h/o recorded low heart rates per cardiology note and discussion about possible need for pacem erik in future. Cardiology recommends stopping metoprolol succinate (4) CAD (coronary artery disease): (5) Dyslipidemia: Plan: Denies CP, SOB Resume ASA in AM Continue atorvastatin (6) RLS (restless legs syndrome): Plan: Continue gabapentin DVT Prophylaxis- SCDs for now Code status : Full code I spent a total of 50 minutes coordinating, documenting and providing care for this patient excluding time spent in performance of separately billed services Admission and Anticipated Discharge Date Admission Date: June 25, 2025 Subjective Patient seen and examined Flipped to Afib at 1.31AM Reports feeling fatigued No other complaints Physical Exam Constitutional: + well hydrated; no acute distress Eyes: PERRL, conjunctivae normal, anicteric sclerae ENMT: external ear and nose normal, oropharynx normal Respiratory: normal respiratory effort, lungs clear to auscultation Cardiovascular: Rate/Rhythm: + irregularly irregular Gastrointestinal (Abdomen): normal bowel sounds, soft, nontender, no hepatosplenomegaly Musculoskeletal: No pedal edema Neurologic: PERRL, EOMI, accommodation nl, no face palsy, no dysarthria Psychiatric: A+Ox3, euthymic affect Results & Data Results & Data Vital Signs (Past 12 Hours) Vital Signs Temp Pulse Pulse Resp BP BP Pulse Ox 06/27/25 08:06 36.7 C 117 H 16 114/70 96 06/27/25 05:33 96 H 06/27/25 03:38 36.8 C 110 H 16 113/75 94 06/27/25 02:25 102 H 98/64 L 06/27/25 02:09 121 H 115/66 06/27/25 02:08 121 H 115/66 92 06/27/25 01:31 131 H 06/26/25 23:19 36.8 C 59 L 18 123/65 93 O2 Del Method 06/27/25 08:06 Room Air 06/27/25 05:33 06/27/25 03:38 Room Air 06/27/25 02:25 06/27/25 02:09 06/27/25 02:08 Room Air 06/27/25 01:31 06/26/25 23:19 Room Air Laboratory Results Abnormal lab results 06/27/25 06/27/25 Range/Units 03:08 03:25 WBC 4.10 L (4.8-10.8) K/ul RBC 2.82 L (4.70-6.10) M/uL Hgb 7.5 L 7.3 L (14.0-18.0) g/dL Hct 24.4 L 23.5 L (42.0-52.0) % MCHC 30.7 L (32.0-36.0) g/dL RDW Std Deviation 50.4 H (36.4-46.3) fL RDW Coeff of Melba 16.8 H (11.5-14.5) % Chloride 108 H (98-107) mmol/L Calcium 8.1 L (8.6-10.3) mg/dl (4) CAD (coronary artery disease) Coronary Disease-Associated Artery/Lesion type: [place] artery [place] vs. transplanted heart: [place] heart Associated angina: without angina Qualified Code(s): I25.10 - Atherosclerotic heart disease of [place] coronary artery without angina pectoris
--- NOTE | 2025-06-27 10:12 | History & Physical Bridge Note ---
Date of Service June 27, 2025 History & Physical Bridge Note I have examined the patient, reviewed the History & Physical and in the interval since the performance of the History & Physical I have noted the following changes of clinical significance: Patient has been noted to go into atrial fibrillation over night which he does have a history of. He was given Metoprolol 2.5mg IV stat which controlled rhythm. This morning he's been running in the low 100s. Exam - Irregular Irregular rhythm. Mildy tachycardic. Spoke with attending GI and Anesthesia. Prefer to have rate < 110BPM to proceed with EGD. Tigered covering hospitalist to help assist with Afib control prior to EGD today. Supervising Physician Co-Signing Physician Notes Occult GI bleeding. For upper endoscopy today. Patient went into A-fib last evening. He has rate control at present. Reviewed with anesthesia. At heart rate currently 90-100 okay to proceed. Patient has no dyspnea or chest pain. He was also seen by his hydrometer tester today who felt it was okay to proceed. EGD today for potential identification of bleeding AVMs with endoscopic intervention. Risks and benefits explained to the patient informed consent obtained
--- NOTE | 2025-06-27 15:03 | GI REPORT ---
[facility] Patient: CHARAN SMITH : 1945 Sex at : Male Age: 80 Years Procedure: Upper GI endoscopy Date: 06/27/2025 Attending Physician: Juan Khan MD Referring MD: Liseth Pandya; Sandra Suh MD Indications: - Suspected upper gastrointestinal bleeding Medications: - Monitored Anesthesia Care - Glucagon 1 mg IV Complications: - No immediate complications. Estimated Blood Loss: - Estimated blood loss: None. Procedure: - The pediatric colonoscope was introduced through the mouth and advanced to the jejunum. - The upper GI endoscopy was accomplished without difficulty. - The patient tolerated the procedure well. Findings: - The examined esophagus was normal. - A single 14 mm flat polyp with no bleeding and no stigmata of recent bleeding was found at the incisura. Biopsies were taken with a cold forceps for histology. Estimated blood loss was minimal. - The examined duodenum was normal. - Scope passed 1.5 m out into the small bowel proximal jejunum. 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 This was coagulated. However this was not bleeding. No further bleeding lesions encountered. Impression: - Normal esophagus. - A single gastric polyp. Biopsied. - Normal examined duodenum. - Scope passed 1.5 m out into the small bowel proximal jejunum. 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 This was coagulated. However this was not bleeding. No further bleeding lesions encountered. Recommendation: - Await pathology results. - Though there was a small AVM this was not bleeding or spontaneously bleeding though it may be playing a role in his bleeding I doubt it is the primary or only source. See how he does post coagulation. There is a polypoid lesion at the incisura. We did not remove this in this gentleman with bleeding or concerns for bleeding. If pathology shows precancerous or adenomatous tissue. This will need endoscopically removal and/or EMR Can resume Eliquis tomorrow if hemoglobin stable no bleeding Procedure Code(s): - 95787, Esophagogastroduodenoscopy, flexible, transoral; with biopsy, single or multiple Diagnosis Code(s): - K31.7, Polyp of stomach and duodenum CPT(R) - 2023 copyright [employer]. All Rights Reserved. The CPT codes, CCI edits and ICD codes generated are intended as suggestions and were generated based on input data. These codes are preliminary and upon barrel assembly inspector review may be revised to meet current compliance and payer requirements. The provider is responsible for the final determination of appropriate codes, and modifiers. Juan Khan MD This document has been electronically signed. Note Initiated:06/27/2025 Note Completed:06/27/2025 3:02 PM \\[email or web address]\Central\InterfaceData\Data\Provation\Results\LIVE\[id number]
--- NOTE | 2025-06-27 15:11 | Anesthesiology Progress Note ---
Date of Service June 27, 2025 Anesthesia Post Procedure Vital Signs Vital Signs: Temp Pulse Pulse Resp BP BP Pulse Ox 06/27/25 14:54 96 H 16 92/57 L 97 06/27/25 12:55 36.7 C 82 18 100/70 99 06/27/25 11:36 36.9 C 74 16 93/56 L 97 06/27/25 08:06 36.7 C 117 H 16 114/70 96 06/27/25 05:33 96 H 06/27/25 03:38 36.8 C 110 H 16 113/75 94 06/27/25 02:25 102 H 98/64 L 06/27/25 02:09 121 H 115/66 06/27/25 02:08 121 H 115/66 92 06/27/25 01:31 131 H 06/26/25 23:19 36.8 C 59 L 18 123/65 93 06/26/25 21:38 56 L 06/26/25 19:55 06/26/25 19:41 36.9 C 51 L 18 112/50 L 97 06/26/25 15:23 36.9 C 58 L 22 115/58 L 95 O2 Del Method 06/27/25 14:54 Room Air 06/27/25 12:55 Room Air 06/27/25 11:36 Room Air 06/27/25 08:06 Room Air 06/27/25 05:33 06/27/25 03:38 Room Air 06/27/25 02:25 06/27/25 02:09 06/27/25 02:08 Room Air 06/27/25 01:31 06/26/25 23:19 Room Air 06/26/25 21:38 06/26/25 19:55 Room Air 06/26/25 19:41 Room Air 06/26/25 15:23 Room Air Transfer of Care Handoff Completed per policy Notes Mental Status: alert / awake / arousable Patient Amnestic to Procedure: Yes Nausea / Vomiting: adequately controlled Pain: adequately controlled Airway Patency, RR, SpO2: stable & adequate BP & HR: stable & adequate Hydration State: stable & adequate Anesthetic Complications: no major complications apparent and Pt Satisfied with anesthetic care
[2025-06-27] MEDS: PROPOFOL IV EMULSION 10 MG/ML 20 ML VIAL IV ONE (16:48)
[2025-06-27] MEDS: GLUCAGON FOR INJ 1 MG VIAL ONE (16:48)
[2025-06-27] MEDS: LIDOCAINE 2% 2 ML VIAL/AMP(20MG/ML) INFIL ONE (16:48)
[2025-06-27] MEDS: IRON SUCROSE 200 MG in SODIUM CHLORIDE 0.9% 100 ML IV ONE (18:26)
[2025-06-28 03:50] VITALS: RESP 16; O2SAT 96
[2025-06-28 07:22] LABS: Hematocrit (blood only) 23.6 % (42.0-52.0); Hemoglobin 7.2 g/dL (14.0-18.0); Mean Corpuscular Hemoglobin 26.6 pg (25.0-34.0); Mean Corpuscular Volume 87.1 fL (80.0-100.0); Platelet Count 160 K/uL (130-400); RDW Standard Deviation 52.3 fL (36.4-46.3); Red Blood Count 2.71 M/uL (4.70-6.10); White Blood Count 3.96 K/ul (4.8-10.8)
[2025-06-28 07:52] LABS: Anion Gap 6.0 (3-11); Blood Urea Nitrogen 14.0 mg/dl (6-23); Calcium 7.9 mg/dl (8.6-10.3); Carbon Dioxide 24.0 mmol/L (21-32); Chloride 109.0 mmol/L (98-107); Creatinine Clr Calc Pharmacy 59.3 ml/min; Glucose 85.0 mg/dl (70-99(Fasting)); Potassium 3.8 mmol/L (3.5-5.1); Sodium 139.0 mmol/L (136-145)
[2025-06-28] MEDS: IRON SUCROSE 200 MG in SODIUM CHLORIDE 0.9% 100 ML IV ONE (07:58)
[2025-06-28 08:00] VITALS: BP 107/64; PULSE 100; TEMP 98.1
[2025-06-28] MEDS: APIXABAN 5 MG TABLET PO SCH (08:42)
[2025-06-28] MEDS: ASPIRIN 81 MG ECTAB PO SCH (08:42)
--- NOTE | 2025-06-28 10:18 | Discharge Summary ---
Date of Service June 28, 2025 Admission HPI Per Admitting Provider Patient is 80-year-old male with PMH anemia, colon cancer S/P right hemicolectomy with ileostomy on 05/21/[address] Coy at [facility] with subsequent ileus,CKD III, paroxysmal atrial fibrillation, CAD, dyslipidemia, RLS, history of prostate cancer presented to ER with c/o abnormal labs - "low hemoglobin". Per chart review patient with [facility] admission 05/21/2025-05/23/2025 laparoscopic converted to right hemicolectomy by Dr. Coy. Also [facility] admission 05/25/2025- 05/28/2025 for ileus. Patient states has been doing well and his prior lower abdominal discomfort from surgery has almost resolved. Denies any worsening abdominal pain. Reports takes iron and his stools are chronically dark in coloration. States stools are soft and formed. Denies hematochezia. He following with [facility] hematology for IV infusion for iron deficiency anemia. Last Venofer on 04/14/25. Was to be receiving weekly x 4 starting on 06/17/25, however did get started yet since his recent procedure in May. Per outpatient chart review: 05/28/25 Hgb: 8.3, 06/11/2025 Hgb: 8.8, 06/24/2025 Hgb: 5.1 and was referred to ER today. States has been feeling fatigued since surgery in May however yesterday felt more fatigued with ambulating. Denies fever/chills, diaphoresis, N/V/D, ANTHONY, dizziness, syncope, vision changes, neck pain, CP, SOB, palpitations, cough, sore throat, rhinorrhea, paresthesias, extremity weakness, extremity edema, rashes, urinary symptoms. Discussed patient with ER provider and patient found to be anemic with Hgb: 5.3 and pt has started PRBC transfusion in ER. Admission Exam Per Admitting Provider General: no distress, WDWN Head: normocephalic, atraumatic Eyes: pale conjunctiva, conjunctiva non-injected, anicteric ENT: normal inspection external ears, nose, mucous membranes moist Neck: supple, trachea midline Lungs: clear, no respiratory distress, no wheezing/rhonchi/rales CV: RRR, no murmur, no pretibial edema Abd: +healing surgical incision abdomen without surrounding erythema and no discharge, normal BS, soft, non-tender to palpation Ext: no cyanosis, no calf tenderness Neuro: A&O x 3, no focal deficits noted, normal affect Skin: pale, warm, dry Principal Diagnosis Acute on chronic anemia Paroxysmal atrial fibrillation with rapid ventricular rate Discharge Exam Constitutional + well hydrated; no acute distress Eyes PERRL, conjunctivae normal, anicteric sclerae ENMT external ear and nose normal, oropharynx normal Respiratory normal respiratory effort, lungs clear to auscultation Cardiovascular Rate/Rhythm: regular rate and regular rhythm Gastrointestinal (Abdomen) normal bowel sounds, soft, nontender, no hepatosplenomegaly Neurologic PERRL, EOMI, accommodation nl, no face palsy, no dysarthria Psychiatric A+Ox3, euthymic affect Discharge Data Allergies Allergy/AdvReac Type Severity Reaction Status Date / Time No Known Allergies Allergy Verified 04/22/25 10:42 Consultations 06/25/25 13:32 Consult Hematology Routine 06/25/25 13:36 ED Decision to Admit Stat 06/25/25 15:34 Consult Gastroenterology Routine 06/27/25 08:42 Consult Cardiology Routine Procedures Performed Operation Date: 06/27/25 16:30 Actual Procedures p EGD Hemostasis with biopsy - Juan Khan MD Ordered Studies 06/25/25 10:34 CTA abdomen pelvis w con [CT angio abdomen pelvis w con] Stat Hospital Course (1) Acute on chronic anemia: 80-year-old male with PMH anemia, colon cancer S/P right hemicolectomy with ileostomy on 05/21/[address] Coy at [facility] with subsequent ileus, CKD III, paroxysmal atrial fibrillation, CAD, dyslipidemia, RLS, history of prostate cancer presented to ER with for abnormal labs/low Hb. Reports worsening Fatigue that worsened in the past few days Previous diagnosis of iron deficiency anemia Last Venofer on 04/14/25. Per outpatient chart review: 05/28/25 Hgb: 8.3, 06/11/2025 Hgb: 8.8, 06/24/2025 Hgb: 5.1 In ER vitals stable. H/H: 5.3/18, retic%: 6.2, retic #: 0.13. +heme positive stool test in ER CT Abd/pelvis: 1. Unremarkable CT angiogram of the abdominal aorta and its major branches noting atherosclerotic plaque and irregularity. 2. There is postsurgical change from right hemicolectomy with ileocolic anastomosis. No intraluminal contrast is identified to suggest a site of active GI bleeding. 3. Small volume pelvic ascites. 4. Cardiomegaly noting coronary artery atherosclerosis. 5. Cholelithiasis. LDH was normal 166. Haptoglobin pending Anemia likely due to Gastrointestinal bleed from AVMs. Also has history of iron deficiency S/p 2 PRBC. 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 No bleeding Patient's eliquis and ASA resumed He can follow up the biopsy results with PCP/GI (2) Adenocarcinoma, colon: S/P right hemicolectomy with ileostomy on 05/21/[address] Coy at [facility] (3) Paroxysmal a-fib: Anticoagulated on Eliquis Flipped into Afib on 06/27/25 Cardiology evaluated. Flipped back into normal sinus rhythm [employer] eliquis resumed #H/O Tachybrady syndrome H/O elevated heart rates during episodes of atrial fibrillation and h/o recorded low heart rates per cardiology note and discussion about possible need for pacemaker in future. 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 (4) CAD (coronary artery disease): (5) Dyslipidemia: Continue atorvastatin and aspirin (6) RLS (restless legs syndrome): Continue gabapentin Total Time Total Time Spent Total Time Spent (In Minutes): 35 Total Time Includes: Examination of the Patient, Discharge Planning and Medication Reconciliation Discharge Plan Discharge Items Patient Disposition: Home - Self-Care Reason For Visit: ACUTE ON CHRONIC ANEMIA Discharge Diagnosis: Acute on chronic anemia Paroxysmal atrial fibrillation with rapid ventricular rate Condition on Discharge: Good Activity: Resume your previous activity Non-emergency contact: Primary Care Provider Call non-emergency contact if: you have any medication questions Follow-up/Referrals: Shlomo Pearson MD [Physician] - Sharad Yeager MD [Primary Care Provider] - (Date & Time 07/04/2025 10:40 AM Provider: Sharad Yeager MD [facility] ) Diet: Heart Healthy Addtl Attending Provider Instructions: Mr Bahena You were hospitalized and managed for the above listed diagnoses. You had upper gastrointestinal endoscopy (EGD) and a polyp sent for biopsy. Please follow up result with your Primary Doctor. 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 It was a pleasure taking care of you Pending Studies at Discharge: Yes (Pathology) Stand-Alone Forms: My [facility], Smoking Cessation Medications and DC Order Prescriptions: Continued multivitamin with iron Tablet 1 tab PO DAILY Patient Comments: 06/25- otc unable to verify gabapentin 300 mg capsule 300 mg PO HS Rx Instructions: take 1 hour before bed for RLS aspirin [Aspir-81] 81 mg tablet,delayed release (DR/EC) 81 mg PO DAILY Patient Comments: 06/25- otc unable to verify Multaq 400 mg tablet 400 mg PO BID Qty: 60 5RF Rx Instructions: must administer with a meal/food atorvastatin [Lipitor] 80 mg tablet 80 mg PO QPM nitroglycerin [Nitrostat] 0.4 mg tablet, sublingual 0.4 mg sublingual Q5M PRN (Reason: Chest Pain) Eliquis 5 mg tablet 5 mg PO BID Rx Instructions: TAKE 1 TABLET BY MOUTH TWICE A DAY Discharge Orders: Discharge Order (Routine); Ordered 06/28/25 Ordered By: Sandra Suh Admission Data Admit Date/Time: 06/25/25 13:32 Attending Provider: Sandra Suh I. Admit Provider: Jaret Good Primary Care Provider: Sharad Yeager Other Providers: Sunday Gibson; Jaret Good; Juan Khan; Shlomo Pearson Other Interventions: Discharge Summary Assessment (RN) Last Done: 06/28/25 11:58
--- NOTE | 2025-06-30 13:03 | Electrocardiogram Report ---
Test Reason : Blood Pressure : */* mmHG Vent. Rate : 50 BPM Atrial Rate : 50 BPM P-R Int : 164 ms QRS Dur : 124 ms QT Int : 508 ms P-R-T Axes : 12 -53 18 degrees QTcB Int : 463 ms Sinus bradycardia Left axis deviation Right bundle branch block Abnormal ECG When compared with ECG of 25-Jun-2025 16:27, Premature supraventricular complexes are no longer Present Confirmed by Isrrael Irene ([id number]) on 06/30/2025 1:02:56 PM Referred By: Mana Rizzo Confirmed By: Isrrael Irene
== END 2025-06-28 11:58 | disposition home or self-care (01) | DRG 378 ==
LOC: ED 09:14 → 2N 13:32 → SUATTDRO 13:32 → 2N 14:21